=== PATIENT | female | born 1985 | race Caucasian/White ===

== ENCOUNTER 2020-06-30 19:26 | Emergency (ER) | payer OTHER, SELFPAY ==
--- NOTE | ~2020-06-30 | US_ITS ---
EXAMINATION: ULTRASOUND OB LIMITED. CLINICAL INFORMATION: Status post medical [address] COMPARISON: None TECHNIQUE: Transabdominal and transvaginal ultrasound the pelvis is performed. FINDINGS: The uterus is retroverted and retroflexed measuring 10.1 cm in length, 4.4 cm in AP and 5.4 cm in transverse dimension. Endometrium is heterogeneous and thickened measuring 3.4 cm with increased vascularity. There is small echogenic material within the endometrial canal, likely retained products of conception. The right ovary measures 2.7 x 1.6 x 2.0 cm and volume 4.5 mL. It appears unremarkable. The left ovary measures 2.1 x 1.6 x 1.5 cm and volume 2.6 mL. There is a small corpus luteal cyst measuring 1.3 x 0.8 x 1.3 cm. The small amount of free fluid in the cul-de-sac. US/US OB transvaginal IMPRESSION: Dizziness retroverted uterus with thickened endometrium and increased vascularity. There is small amount of retained products of conception within the endometrial canal. There is small free fluid in the cul-de-sac. There is small corpus luteal cyst visualized in the left ovary .
--- NOTE | ~2020-06-30 | CT_ITS ---
EXAMINATION: CT ABDOMEN AND PELVIS WITH CONTRAST CLINICAL INFORMATION: Diffuse abdominal pain COMPARISON: None TECHNIQUE: Multidetector volumetric images were obtained from the superior aspect of the liver through the pubic symphysis following administration 85 mL of Omnipaque 350 intravenous contrast. Sagittal and coronal reformatted images were obtained on the technologist's workstation. Oral contrast: No This CT examination was performed using dose optimization techniques as appropriate, variously including the following: *Automated exposure control *Adjustment of mA and/or kV according to patient size (this includes techniques or standardized protocols for targeted exams where dose is matched to indication/reason for exam; i.e. extremities or head) *Use of iterative reconstruction technique DLP: 331 mGy-cm FINDINGS: LUNG BASES: There is minimal atelectatic changes in left lung base. The heart size is normal. LIVER, GALLBLADDER, AND BILIARY TREE: The liver is normal in size, shape, and attenuation. No focal hepatic lesion or biliary ductal dilatation is present. The gallbladder is unremarkable with no evidence of radiopaque gallstones, gallbladder wall thickening, or obvious pericholecystic inflammatory changes. PANCREAS: Unremarkable. SPLEEN: Unremarkable. ADRENAL GLANDS: Unremarkable. KIDNEYS AND URETERS: The kidneys are normal in size, shape, and attenuation. No hydronephrosis, hydroureter, or calculi seen. No perinephric stranding. BLADDER: Unremarkable. GASTROINTESTINAL TRACT: There is moderate liquid and minimal stool seen throughout the colon without any significant distention. There is fluid filled small bowel loops. There is nonspecific mild mural prominence seen in the proximal small bowel loops on several axial images 33/3, image 41/3, image 39/3. No free air or free fluid seen. ABDOMINAL WALL: No significant hernia is appreciated. LYMPH NODES: Normal. VASCULAR: There are prominent varicose veins in the abdomen. PELVIC VISCERA: There is no free fluid seen. The uterus is retroverted. A slightly enlarged. OSSEOUS STRUCTURES: Unremarkable. CT/CT abdomen pelvis w con IMPRESSION: Filled colon and small bowel loops. There are circumferential mural thickening involving some of the small bowel loops segments suspicious for enteritis. No abnormal retroperitoneal or mesenteric lymph nodes seen. Retroverted bulky uterus
--- NOTE | ~2020-06-30 | US_ITS ---
EXAMINATION: ULTRASOUND OB LIMITED. CLINICAL INFORMATION: Status post medical [address] COMPARISON: None TECHNIQUE: Transabdominal and transvaginal ultrasound the pelvis is performed. FINDINGS: The uterus is retroverted and retroflexed measuring 10.1 cm in length, 4.4 cm in AP and 5.4 cm in transverse dimension. Endometrium is heterogeneous and thickened measuring 3.4 cm with increased vascularity. There is small echogenic material within the endometrial canal, likely retained products of conception. The right ovary measures 2.7 x 1.6 x 2.0 cm and volume 4.5 mL. It appears unremarkable. The left ovary measures 2.1 x 1.6 x 1.5 cm and volume 2.6 mL. There is a small corpus luteal cyst measuring 1.3 x 0.8 x 1.3 cm. The small amount of free fluid in the cul-de-sac. US/US OB limited IMPRESSION: Dizziness retroverted uterus with thickened endometrium and increased vascularity. There is small amount of retained products of conception within the endometrial canal. There is small free fluid in the cul-de-sac. There is small corpus luteal cyst visualized in the left ovary .
[2020-06-30 19:34] VITALS: BP 101/60; BP 60/22; PULSE 63; RESP 20; TEMP 36.6; O2SAT 97; O2SAT 98; BMI 23.2
--- NOTE | 2020-06-30 19:46 | ECG_ITS ---
Test Reason : DIZZINESS Blood Pressure : / mmHG Vent. Rate : 056 BPM Atrial Rate : 056 BPM P-R Int : 140 ms QRS Dur : 084 ms QT Int : 448 ms P-R-T Axes : 046 066 040 degrees QTc Int : 432 ms Sinus bradycardia Otherwise normal ECG No previous ECGs available Referred By: Damaris Faust Electronically Signed By:Han Anguiano
--- NOTE | 2020-06-30 19:51 | ED_ITS ---
HPI - General Adult General Chief complaint: General Medical Stated complaint: dyzness Time Seen by Provider: 06/30/20 19:38 Source: patient and EMS Mode of arrival: EMS Limitations: no limitations History of Present Illness HPI narrative: Patient comes emergency room complaining of dizziness and abdominal pain. Patient states that 3 weeks ago, she had a medical induced , has been having moderate vaginal bleeding daily. Patient states earlier today, she had a sensation that she was going to pass out, lightheaded, blacking out but she did not lose consciousness. Patient states that shortly after she started having intense bilateral lower quadrant abdominal pain. Patient denies foul vaginal discharge, states the bleeding amount is no more than a regular menstrual period. Per EMS, on their arrival, the patient's blood pressure was 60 systolic. On arrival to the emergency room, it was 100 systolic without any treatment. Patient is a , has an 11-year-old daughter, the last was an elective termination, patient has had 4 miscarriages. Related Data Previous Rx's Medication Instructions Recorded ibuprofen 600 mg PO TID PRN #14 tab 06/30/20 Allergies Allergy/AdvReac Type Severity Reaction Status Date / Time fexofenadine [From Nathalia] Allergy Dry Mucus Verified 06/30/20 19:39 Membranes promethazine [From Phenergan] Allergy Shakiness Verified 06/30/20 19:39 shellfish derived Allergy Anaphylaxis Verified 06/30/20 19:39 Review of Systems Review of Systems: Constitutional : No Weight loss, No Fever, No Chills, No Night Sweats, No Fatigue, No Malaise ENT/Mouth : No Hearing loss, No Ear Pain, No Nasal Congestion, No Sinus Pain, No Hoarseness, No sore throat, No Rhinorrhea, No Swallowing Difficulty Eyes: No Eye Pain, No Swelling, No Redness, No Foreign Body, No Discharge, No Vision Changes Cardiovascular : No Chest Pain, No SOB, No Dyspnea on Exertion, No Orthopnea, No Edema, No Palpitations Respiratory : No Cough, No Sputum, No Wheezing, No Smoke Exposure, No Dyspnea Gastrointestinal : No Nausea, No Vomiting, No Diarrhea, No Constipation, complaining of sudden onset of sharp abdominal pain, now slowly subsiding, No Hematochezia, No Melena Genitourinary : Has had vaginal bleeding for 3 weeks status post medical , No Dysuria, No Urinary Frequency, No Hematuria, No Urinary Incontinence, No Urgency, No Flank Pain, No Urinary Flow Changes, No Hesitancy Musculoskeletal : No joint pain, No Myalgias, No Joint Swelling Skin : No Skin Lesions, No rash Neuro : No Weakness, No Numbness, No Paresthesias, No Loss of Consciousness, prior to arrival had an episode of lightheadedness Psych : No Anxiety/Panic, No Depression, No SI/HI/AH/VH, No Social Issues, Heme/Lymph: No Bruising, No Bleeding,No Lymphadenopathy Endocrine : No Polyuria, No Polydipsia, No Temperature Intolerance FOR[facility]LY [facility], [facility] Past Medical History Medical History Miscarriage Muscular dystrophy Vaginal delivery Surgical History Hx of appendectomy Social History Social History Advance Directives: No Physical Exam Vital Signs: Vital Signs: Last Vital Signs Temp 97.8 F 06/30/20 19:34 Pulse 63 06/30/20 19:34 Resp 20 06/30/20 20:58 BP 101/60 06/30/20 19:34 Pulse Ox 98 06/30/20 19:34 Body Mass Index 23.2 Appearance: Alert. Oriented X3. No acute distress. Anxious Eyes: Pupils equal, round and reactive to light. ENT: Pharynx normal. Neck: Normal inspection. Neck supple. No lymph nodes noted. No crepitus CVS: Normal heart rate and rhythm. Pulses normal. Normal S1 and S2 Respiratory: No respiratory distress. Breath sounds normal. No Wheezing. No rales Abdomen: Soft , moderate tenderness to palpation over the bilateral lower quadrants. No rigidity. No distention. : minimal brown, dark red blood around cervix, no active bleeding from cervical oz, no cervical motion tenderness, no adnexal pain Skin: Skin warm and dry. Normal skin color. Normal skin turgor. Extremities: No lower extremity edema. No lower extremity edema. No Lacerations. No Rash Neuro: Oriented X 3. No motor deficit. No sensory deficit. Moving all extermities. No slurred speech. Course Course Course Narrative: Patient states that she has no abdominal pain, no cramping, states she feels completely back to normal. I discussed the ultrasound and CT with the patient and the hCG level. Patient has an OBGYN, instructed to have close follow-up with her OBGYN because her HCG still elevated, needs to come down to 0. Of retained product of conception within the endometrial canal, which patient may need a D&C. Patient's episode of dizziness earlier today likely was vasovagal. Patient's orthostatics were negative, however by the time that the orthostatics were checked, patient had already received fluids. Prior to discharge, patient feeling well, at baseline Medical Decision Making Lab Data Result diagrams: 06/30/20 19:51 06/30/20 19:51 Labs: Lab Results 06/30/20 06/30/20 06/30/20 Range/Units 19:51 19:51 19:51 WBC 10.1 (4.8-10.8) X10*3/uL RBC 4.00 L (4.20-5.50) X10*6/uL Hgb 12.3 (12.0-16.0) g/dl Hct 37.8 (37-47) % MCV 94.5 (80-98) fL MCH 30.8 (27.0-33.0) pg MCHC 32.5 (31.0-35.0) g/dl RDW 12.5 (11.0-16.0) % Plt Count 455 H (160-400) X10*3/uL MPV 10.4 (9.4-12.3) fL Immature Gran % (Auto) 0.2 (0.0-0.4) % Neut % (Auto) 54.4 (45-73) % Lymph % (Auto) 33.2 (20-40) % [place] % (Auto) 9.8 (2-11) % Eos % (Auto) 2.2 (0-4) % Baso % (Auto) 0.2 (0-2) % Lymph # (Auto) 3.4 (1.2-4.9) X10*3/uL [place] # (Auto) 1.0 (0.1-1.2) X10*3/uL Eos # (Auto) 0.2 (0.0-0.4) X10*3/uL Baso # (Auto) 0.0 (0.0-0.2) X10*3/uL Abs Immat Gran (auto) 0.02 (0.00-0.03) X10*3/uL Absolute Neuts (auto) 5.5 (2.0-8.3) X10*3/uL Absolute Nucleated RBC 0.000 (0.0-0.012) X10*3/uL Nucleated RBC % (auto) 0.0 (0.0-0.2) /100WBC Sodium 138 (135-145) mmol/L Potassium 4.1 (3.3-5.1) mmol/L Chloride 105 (96-108) mmol/L Carbon Dioxide 24 (22-29) mmol/L Anion Gap 13 (12-20) BUN 10 (9-16) mg/dL Creatinine 0.62 (0.5-1.4) mg/dL Estim Creat Clear Calc 95.3 Estimated GFR > 60 Random Glucose 78 (60-115) mg/dL Calcium 9.2 (8.4-10.2) mg/dL Total Bilirubin 0.4 (0.0-1.0) mg/dL Direct Bilirubin < 0.2 (0.0-0.5) mg/dL AST 18 (5-31) U/L ALT 15 (0-31) U/L Alkaline Phosphatase 82 (39-117) U/L Troponin I High Sens < 3.5 (<3.5-17.0) ng/L Total Protein 8.0 (6.5-8.0) g/dL Albumin 4.5 (3.5-5.0) g/dL Beta HCG, Quant 88952 mIU/mL Blood Type 06/30/20 Range/Units 19:51 WBC (4.8-10.8) X10*3/uL RBC (4.20-5.50) X10*6/uL Hgb (12.0-16.0) g/dl Hct (37-47) % MCV (80-98) fL MCH (27.0-33.0) pg MCHC (31.0-35.0) g/dl RDW (11.0-16.0) % Plt Count (160-400) X10*3/uL MPV (9.4-12.3) fL Immature Gran % (Auto) (0.0-0.4) % Neut % (Auto) (45-73) % Lymph % (Auto) (20-40) % [place] % (Auto) (2-11) % Eos % (Auto) (0-4) % Baso % (Auto) (0-2) % Lymph # (Auto) (1.2-4.9) X10*3/uL [place] # (Auto) (0.1-1.2) X10*3/uL Eos # (Auto) (0.0-0.4) X10*3/uL Baso # (Auto) (0.0-0.2) X10*3/uL Abs Immat Gran (auto) (0.00-0.03) X10*3/uL Absolute Neuts (auto) (2.0-8.3) X10*3/uL Absolute Nucleated RBC (0.0-0.012) X10*3/uL Nucleated RBC % (auto) (0.0-0.2) /100WBC Sodium (135-145) mmol/L Potassium (3.3-5.1) mmol/L Chloride (96-108) mmol/L Carbon Dioxide (22-29) mmol/L Anion Gap (12-20) BUN (9-16) mg/dL Creatinine (0.5-1.4) mg/dL Estim Creat Clear Calc Estimated GFR Random Glucose (60-115) mg/dL Calcium (8.4-10.2) mg/dL Total Bilirubin (0.0-1.0) mg/dL Direct Bilirubin (0.0-0.5) mg/dL AST (5-31) U/L ALT (0-31) U/L Alkaline Phosphatase (39-117) U/L Troponin I High Sens (<3.5-17.0) ng/L Total Protein (6.5-8.0) g/dL Albumin (3.5-5.0) g/dL Beta HCG, Quant mIU/mL Blood Type O Positive Imaging Data Abdominal CT: Radiologist's impression: INDINGS: LUNG BASES: There is minimal atelectatic changes in left lung base. The heart size is normal. LIVER, GALLBLADDER, AND BILIARY TREE: The liver is normal in size, shape, and attenuation. No focal hepatic lesion or biliary ductal dilatation is present. The gallbladder is unremarkable with no evidence of radiopaque gallstones, gallbladder wall thickening, or obvious pericholecystic inflammatory changes. PANCREAS: Unremarkable. SPLEEN: Unremarkable. ADRENAL GLANDS: Unremarkable. KIDNEYS AND URETERS: The kidneys are normal in size, shape, and attenuation. No hydronephrosis, hydroureter, or calculi seen. No perinephric stranding. BLADDER: Unremarkable. GASTROINTESTINAL TRACT: There is moderate liquid and minimal stool seen throughout the colon without any significant distention. There is fluid filled small bowel loops. There is nonspecific mild mural prominence seen in the proximal small bowel loops on several axial images 33/3, image 41/3, image 39/3. No free air or free fluid seen. ABDOMINAL WALL: No significant hernia is appreciated. LYMPH NODES: Normal. VASCULAR: There are prominent varicose veins in the abdomen. PELVIC VISCERA: There is no free fluid seen. The uterus is retroverted. A slightly enlarged. OSSEOUS STRUCTURES: Unremarkable. CT/CT abdomen pelvis w con IMPRESSION: Filled colon and small bowel loops. There are circumferential mural thickening involving some of the small bowel loops segments suspicious for enteritis. No abnormal retroperitoneal or mesenteric lymph nodes seen. Retroverted bulky uterus Pelvic/transvaginal ultrasound: Radiologist's impression: FINDINGS: The uterus is retroverted and retroflexed measuring 10.1 cm in length, 4.4 cm in AP and 5.4 cm in transverse dimension. Endometrium is heterogeneous and thickened measuring 3.4 cm with increased vascularity. There is small echogenic material within the endometrial canal, likely retained products of conception. The right ovary measures 2.7 x 1.6 x 2.0 cm and volume 4.5 mL. It appears unremarkable. The left ovary measures 2.1 x 1.6 x 1.5 cm and volume 2.6 mL. There is a small corpus luteal cyst measuring 1.3 x 0.8 x 1.3 cm. The small amount of free fluid in the cul-de-sac. US/US OB limited IMPRESSION: Dizziness retroverted uterus with thickened endometrium and increased vascularity. There is small amount of retained products of conception within the endometrial canal. There is small free fluid in the cul-de-sac. There is small corpus luteal cyst visualized in the left ovary . ECG Data Attestation: I personally reviewed and interpreted this ECG as follows: (Sinus bradycardia, heart rate 56, no ST segment depression or elevation, no T-wave inversion, QTC 432) Discharge Plan Discharge Clinical Impression: Vasovagal near syncope, Abdominal pain Patient Disposition: Home, Self-Care Instructions: Syncope (ED), Abdominal Pain (ED) Additional Instructions: Please call your OBGYN to schedule an appointment within the next week. Your hCG blood level needs to be repeated, and it is likely that you will need another ultrasound. Please follow-up with your primary care physician tomorrow. If you have any worsening or new symptoms, please return to the emergency room or call 911 Prescriptions: New ibuprofen 600 mg tablet 600 mg PO TID PRN (Reason: fever or pain) Qty: 14 RF: 0 Interventions: ED Discharge Assessment Last Done: 06/30/20 23:41 Discharge Date/Time: 06/30/20 23:41
[2020-06-30] MEDS: 0.9 % Sodium Chloride 1,000 ML 999 ML IVCONT (19:54)
[2020-06-30 20:10] LABS: MANUAL DIFF FLAG NO
[2020-06-30 20:12] LABS: Basophils Percent Auto 0.2 % (0-2); Eosinophils Absolute Auto 0.2 X10*3/uL (0.0-0.4); Eosinophils Percent Auto 2.2 % (0-4); Hematocrit 37.8 % (37-47); Hemoglobin 12.3 g/dl (12.0-16.0); Imm Gran Abs Auto 0.02 X10*3/uL (0.00-0.03); Imm Gran Pct Auto 0.2 % (0.0-0.4); Lymphocytes Absolute Auto 3.4 X10*3/uL (1.2-4.9); Lymphocytes Percent Auto 33.2 % (20-40); Mean Corpuscular HGB Conc 32.5 g/dl (31.0-35.0); Mean Corpuscular Hemoglobin 30.8 pg (27.0-33.0); Mean Corpuscular Volume 94.5 fL (80-98); Mean Platelet Volume 10.4 fL (9.4-12.3); Monocytes Percent Auto 9.8 % (2-11); Neutrophils Absolute Auto 5.5 X10*3/uL (2.0-8.3); Neutrophils Percent Auto 54.4 % (45-73); Platelet Count 455 X10*3/uL (160-400); Red Cell Distribution Width 12.5 % (11.0-16.0); White Blood Count 10.1 X10*3/uL (4.8-10.8)
--- NOTE | 2020-06-30 20:21 | PC.NURSE ---
Patient refusing ordered morphine and zofran at this time. States I want to wait until my results are back first . Pt grimacing in pain, reporting whole abdomen pain 10 out of 10 at this time that started 45 minutes prior to arrival. Will continue to monitor.
[2020-06-30 20:34] LABS: Alanine Aminotransferase 15 U/L (0-31); Albumin Level 4.5 g/dL (3.5-5.0); Alkaline Phosphatase 82 U/L (39-117); Anion Gap 13 (12-20); Aspartate Amino Transferase 18 U/L (5-31); Bilirubin Direct < 0.2 mg/dL (0.0-0.5); Bilirubin Total 0.4 mg/dL (0.0-1.0); Blood Urea Nitrogen 10 mg/dL (9-16); Calcium 9.2 mg/dL (8.4-10.2); Carbon Dioxide 24 mmol/L (22-29); Chloride 105 mmol/L (96-108); Creatinine Clr Calc Pharmacy 95.3; Estimated Glomerular Filt Rate > 60; Glucose Random 78 mg/dL (60-115); Potassium 4.1 mmol/L (3.3-5.1); Sodium 138 mmol/L (135-145)
[2020-06-30 20:38] LABS: Troponin-I High Sensitivity < 3.5 ng/L (<3.5-17.0)
[2020-06-30 20:39] LABS: HCG Quantitative 12673 mIU/mL
[2020-06-30 20:58] VITALS: RESP 20
[2020-06-30] MEDS: Morphine Sulfate 4 MG/ML CARTRIDGE IVPUSH (20:58)
[2020-06-30] MEDS: ondansetron HCL 4 MG/2 ML VIAL IVPUSH (20:58)
== END 2020-06-30 23:41 | disposition home or self-care (01) ==
PROVIDERS: Emergency Provider Emergency Medicine
DX: R55 Syncope and collapse (principal); R10.30 Lower abdominal pain, unspecified; N83.12 Corpus luteum cyst of left ovary; G71.00 Muscular dystrophy, unspecified
CPT/HCPCS: 36415; 74177; 76815; 76817; 80048; 80076; 84484; 84702; 85025; 86900; 86901; 93005; 96361; 96374; 96375; 99283; 99284; J2270; J2405; Q9967

== ENCOUNTER 2020-10-19 18:23 | Emergency (ER) | payer OTHER, SELFPAY ==
--- NOTE | ~2020-10-19 | US_ITS ---
EXAMINATION: PELVIC ULTRASOUND CLINICAL INFORMATION: Heavy bleeding for 28 days COMPARISON: CT abdomen pelvis 06/30/2020, pelvic ultrasound 06/30/2020 TECHNIQUE: Both transabdominal endovaginal scanning was performed FINDINGS: A retroflexed uterus measuring 7.3 x 4.1 x 5.0 cm is present. The endometrium appears unremarkable at 2 mm in thickness. No endometrial masses or fluid is seen. Both ovaries appear normal with the right measuring 2.7 x 1.4 x 1.5 cm for a volume of 3.0 mL and the left measuring 2.9 x 1.0 x 1.2 cm for a volume of 2.0 mL. No free fluid is present in the cul-de-sac US/US pelvic and transvaginal IMPRESSION: Negative exam
[2020-10-19 18:34] VITALS: BP 112/58; PULSE 108; RESP 20; TEMP 36.8; O2SAT 100; BMI 20.2
[2020-10-19 18:45] LABS: MANUAL DIFF FLAG NO
[2020-10-19 18:49] LABS: Basophils Percent Auto 0.2 % (0-2); Eosinophils Absolute Auto 0.1 X10*3/uL (0.0-0.4); Eosinophils Percent Auto 0.7 % (0-4); Hematocrit 37.8 % (37-47); Hemoglobin 12.9 g/dl (12.0-16.0); Imm Gran Abs Auto 0.03 X10*3/uL (0.00-0.03); Imm Gran Pct Auto 0.3 % (0.0-0.4); Lymphocytes Absolute Auto 1.5 X10*3/uL (1.2-4.9); Mean Corpuscular HGB Conc 34.1 g/dl (31.0-35.0); Mean Corpuscular Hemoglobin 32.3 pg (27.0-33.0); Mean Corpuscular Volume 94.5 fL (80-98); Mean Platelet Volume 9.8 fL (9.4-12.3); Monocytes Absolute Auto 0.6 X10*3/uL (0.1-1.2); Monocytes Percent Auto 6.6 % (2-11); Neutrophils Absolute Auto 6.6 X10*3/uL (2.0-8.3); Neutrophils Percent Auto 75.2 % (45-73); Platelet Count 332 X10*3/uL (160-400); Red Cell Distribution Width 12.7 % (11.0-16.0); White Blood Count 8.8 X10*3/uL (4.8-10.8)
[2020-10-19 19:12] LABS: Alanine Aminotransferase 12 U/L (0-31); Albumin Level 4.3 g/dL (3.5-5.0); Alkaline Phosphatase 69 U/L (39-117); Anion Gap 12 (12-20); Aspartate Amino Transferase 18 U/L (5-31); Bilirubin Total 0.4 mg/dL (0.0-1.0); Blood Urea Nitrogen 10 mg/dL (9-16); Calcium 9.5 mg/dL (8.4-10.2); Carbon Dioxide 22 mmol/L (22-29); Chloride 109 mmol/L (96-108); Creatinine Clr Calc Pharmacy 75.7; Estimated Glomerular Filt Rate > 60; Glucose Random 134 mg/dL (60-115); Sodium 139 mmol/L (135-145); Total Protein 7.6 g/dL (6.5-8.0)
--- NOTE | 2020-10-19 21:24 | ED_ITS ---
HPI - Female Genitourinary General Chief complaint: Vaginal Bleeding Stated complaint: Menstrual cycle for 25 days Time Seen by Provider: 10/19/20 20:05 Source: patient Mode of arrival: ambulatory Limitations: no limitations History of Present Illness HPI Narrative: Patient comes emergency room complaining of heavy vaginal bleeding. Patient states that period since September 24. This is the 1st time that she has had such a long menstrual period. Patient was seen by her OBGYN 5 days ago, she was started on Provera, patient is currently taking 10 mg. Patient states the Provera made the bleeding worse. Patient states that she has to change tampon every 20 minutes, this has been going on for approximately 4 days. Patient states that she feels dizzy, fatigue Related Data Previous Rx's Medication Instructions Recorded ibuprofen 600 mg PO TID PRN #14 tab 06/30/20 medroxyprogesterone [Provera] 10 mg PO DAILY #2 tab 10/19/20 Allergies Allergy/AdvReac Type Severity Reaction Status Date / Time fexofenadine [From Nathalia] Allergy Dry Mucus Verified 06/30/20 19:39 Membranes promethazine [From Phenergan] Allergy Shakiness Verified 06/30/20 19:39 shellfish derived Allergy Anaphylaxis Verified 06/30/20 19:39 Review of Systems Review of Systems: Constitutional : No Weight loss, No Fever, No Chills, No Night Sweats, complaining of fatigue ENT/Mouth : No Hearing loss, No Ear Pain, No Nasal Congestion, No Sinus Pain, No Hoarseness, No sore throat, No Rhinorrhea, No Swallowing Difficulty Eyes: No Eye Pain, No Swelling, No Redness, No Foreign Body, No Discharge, No Vision Changes Cardiovascular : No Chest Pain, No SOB, No Dyspnea on Exertion, No Orthopnea, No Edema, No Palpitations Respiratory : No Cough, No Sputum, No Wheezing, No Smoke Exposure, No Dyspnea Gastrointestinal : No Nausea, No Vomiting, No Diarrhea, No Constipation, No abdominal Pain, No Hematochezia, No Melena Genitourinary : Complaining of heavy and continues menstrual period since September 24, No Dysuria, No Urinary Frequency, No Hematuria, No Urinary Incontinence, No Urgency, No Flank Pain, No Urinary Flow Changes, No Hesitancy Musculoskeletal : No joint pain, No Myalgias, No Joint Swelling Skin : No Skin Lesions, No rash Neuro : No Weakness, No Numbness, No Paresthesias, No Loss of Consciousness, No Dizziness, No Headache Psych : No Anxiety/Panic, No Depression, No SI/HI/AH/VH, No Social Issues, Heme/Lymph: No Bruising, No Bleeding,No Lymphadenopathy Endocrine : No Polyuria, No Polydipsia, No Temperature Intolerance PMF Past Medical History Medical History Miscarriage Muscular dystrophy Vaginal delivery Surgical History Hx of appendectomy Social History Social History Patient Tobacco Use Status: Never used Tobacco Use of substances other than those prescribed or required for medical reasons: No Advance Directives: No Advance Directives Information Provided: No Patient : No Physical Exam Vital Signs: Vital Signs: Last Vital Signs Temp 98.7 F 10/19/20 21:39 Pulse 85 10/19/20 21:41 Resp 16 10/19/20 21:39 BP 102/53 L 10/19/20 21:41 Pulse Ox 100 10/19/20 21:39 Body Mass Index 20.2 Appearance: Alert. Oriented X3. No acute distress. Eyes: Pupils equal, round and reactive to light. ENT: Pharynx normal. Neck: Normal inspection. Neck supple. No lymph nodes noted. No crepitus CVS: Normal heart rate and rhythm. Pulses normal. Normal S1 and S2 Respiratory: No respiratory distress. Breath sounds normal. No Wheezing. No rales Abdomen: Soft and nontender. No rigidity. No distention. : [id number] blood in the vaginal canal Skin: Skin warm and dry. Normal skin color. Normal skin turgor. Extremities: No lower extremity edema. No lower extremity edema. No Lacerations. No Rash Neuro: Oriented X 3. No motor deficit. No sensory deficit. Moving all extermities. No slurred speech. Course Course Course Narrative: I discussed the ultrasound with Dr. Bruno, patient instructed to take 20 mg of Provera for the next 2 days, then return to 10 mg. MDM - Female Genitourinary Lab Data Result diagrams: 10/19/20 18:41 10/19/20 18:41 Labs: Lab Results 10/19/20 10/19/20 Range/Units 18:41 18:41 WBC 8.8 (4.8-10.8) X10*3/uL RBC 4.00 L (4.20-5.50) X10*6/uL Hgb 12.9 (12.0-16.0) g/dl Hct 37.8 (37-47) % MCV 94.5 (80-98) fL MCH 32.3 (27.0-33.0) pg MCHC 34.1 (31.0-35.0) g/dl RDW 12.7 (11.0-16.0) % Plt Count 332 D (160-400) X10*3/uL MPV 9.8 (9.4-12.3) fL Immature Gran % (Auto) 0.3 (0.0-0.4) % Neut % (Auto) 75.2 H (45-73) % Lymph % (Auto) 17.0 L (20-40) % [place] % (Auto) 6.6 (2-11) % Eos % (Auto) 0.7 (0-4) % Baso % (Auto) 0.2 (0-2) % Lymph # (Auto) 1.5 (1.2-4.9) X10*3/uL [place] # (Auto) 0.6 (0.1-1.2) X10*3/uL Eos # (Auto) 0.1 (0.0-0.4) X10*3/uL Baso # (Auto) 0.0 (0.0-0.2) X10*3/uL Abs Immat Gran (auto) 0.03 (0.00-0.03) X10*3/uL Absolute Neuts (auto) 6.6 (2.0-8.3) X10*3/uL Absolute Nucleated RBC 0.000 (0.0-0.012) X10*3/uL Nucleated RBC % (auto) 0.0 (0.0-0.2) /100WBC Sodium 139 (135-145) mmol/L Potassium 4.0 (3.3-5.1) mmol/L Chloride 109 H (96-108) mmol/L Carbon Dioxide 22 (22-29) mmol/L Anion Gap 12 (12-20) BUN 10 (9-16) mg/dL Creatinine 0.72 (0.5-1.4) mg/dL Estim Creat Clear Calc 75.7 Estimated GFR > 60 Random Glucose 134 H D (60-115) mg/dL Calcium 9.5 (8.4-10.2) mg/dL Total Bilirubin 0.4 (0.0-1.0) mg/dL AST 18 (5-31) U/L ALT 12 (0-31) U/L Alkaline Phosphatase 69 (39-117) U/L Total Protein 7.6 (6.5-8.0) g/dL Albumin 4.3 (3.5-5.0) g/dL Beta HCG, Quant < 2 mIU/mL Imaging Data Ultrasound: Radiologist's impression: FINDINGS: A retroflexed uterus measuring 7.3 x 4.1 x 5.0 cm is present. The endometrium appears unremarkable at 2 mm in thickness. No endometrial masses or fluid is seen. Both ovaries appear normal with the right measuring 2.7 x 1.4 x 1.5 cm for a volume of 3.0 mL and the left measuring 2.9 x 1.0 x 1.2 cm for a volume of 2.0 mL. No free fluid is present in the cul-de-sac US/US pelvic and transvaginal IMPRESSION: Negative exam Discharge Plan Discharge Clinical Impression: Dysfunctional uterine bleeding Patient Disposition: Home, Self-Care Instructions: Menorrhagia (ED) Additional Instructions: Take 20 mg of Provera for 2 days, then return to your regular dose of 10 mg . Please follow-up with your primary care physician tomorrow. If you have any worsening or new symptoms, please return to the emergency room or call 911 Prescriptions: New medroxyprogesterone [Provera] 10 mg tablet 10 mg PO DAILY Qty: 2 RF: 0 No Action ibuprofen 600 mg tablet 600 mg PO TID PRN (Reason: fever or pain) Qty: 14 RF: 0
[2020-10-19 21:39] VITALS: BP 112/57; PULSE 71; RESP 16; TEMP 37.1; O2SAT 100
[2020-10-19 21:40] VITALS: BP 106/60; BP 112/57; PULSE 71; PULSE 76
[2020-10-19 21:41] VITALS: BP 102/53; PULSE 85
--- NOTE | 2020-10-19 21:47 | PC.NURSE ---
THIS RN AT BEDSIDE DISPUTE SPECIALIST FOR PELVIC EXAM. MODERATE VAGINAL BLEEDING NOTED BY MD. NO LARGE CLOTS. AWAITING FURTHER INTERVENTIONS INCLUDING US. AWARE OF PLAN OF CARE. PT REMAINS A&Ox4, SKIN PWD RESPIRATIONS EVEN UNLABORED. AMBULATING WITH STEADY GAIT.
--- NOTE | 2020-10-19 22:37 | PC.NURSE ---
PT RETURNED FROM US, NO CHANGE IN PHYSICAL ASSESSMENT, AWAITING RESULTS, AWARE OF PLAN OF CARE.
[2020-10-19 23:08] LABS: HCG Quantitative < 2 mIU/mL
[2020-10-19] MEDS: Acetaminophen 325 MG TABLET 650 MG PO (23:53)
== END 2020-10-20 00:10 | disposition home or self-care (01) ==
PROVIDERS: Emergency Provider Emergency Medicine
DX: N93.8 Other specified abnormal uterine and vaginal bleeding (principal); Z79.899 Other long term (current) drug therapy
CPT/HCPCS: 36415; 76830; 76856; 80053; 84702; 85025; 99284

== ENCOUNTER 2020-12-13 19:50 | Emergency (ER) | payer OTHER, SELFPAY ==
--- NOTE | ~2020-12-13 | XR_ITS ---
EXAMINATION: XR KNEE, LEFT CLINICAL INFORMATION: Left knee pain. Unable to straighten. Injury. COMPARISON: None TECHNIQUE: Four views of the left knee. FINDINGS: The tricompartment joint space is maintained normal. No visible acute fracture, dislocation or subluxation seen. No abnormal joint effusion. The soft tissues are normal. XR/XR knee LT 4V IMPRESSION: Unremarkable left knee exam.
[2020-12-13 19:57] VITALS: BP 157/82; PULSE 87; O2SAT 100
[2020-12-13 20:00] VITALS: BP 101/45; PULSE 81; RESP 17; TEMP 36.8; O2SAT 99; BMI 21.9
--- NOTE | 2020-12-13 20:44 | PC.NURSE ---
patient a&ox3, vss, xrays ordered/performed, awaiting ed provider, will continue to monitor
--- NOTE | 2020-12-13 21:27 | ED_ITS ---
HPI - Extremity Injury (Lower) General Chief Complaint: Extremity Injury, Lower Stated Complaint: fall knee pain Time Seen by Provider: 12/13/20 21:13 Source: patient and EMS Mode of arrival: EMS Limitations: no limitations History of Present Illness HPI Narrative: 34-year-old female came in for evaluation of left knee injury. Patient was on the stair and about to fall tried to turn her body and twisted her left knee felt pain right after, patient never fell down to the floor. No head injuries, no back pain, no neck pain. No other injuries. Related Data Previous Rx's Medication Instructions Recorded ibuprofen 600 mg tablet 600 mg PO TID PRN #14 tab 06/30/20 medroxyprogesterone 10 mg tablet 10 mg PO DAILY #2 tab 10/19/20 (Provera) ibuprofen 600 mg tablet 600 mg PO Q8H PRN #14 tab 12/13/20 Allergies Allergy/AdvReac Type Severity Reaction Status Date / Time fexofenadine [From Nathalia] Allergy Dry Mucus Verified 06/30/20 19:39 Membranes promethazine [From Phenergan] Allergy Shakiness Verified 06/30/20 19:39 shellfish derived Allergy Anaphylaxis Verified 06/30/20 19:39 Review of Systems Review of Systems: All other systems are reviewed and are negative Constitutional: Reports as per HPI and Reports no additional constitutional complaints Eyes: Reports as per HPI and Reports no additional eye complaints Reports system reviewed and no additional complaints, except as documented Cardiovascular: Reports as per HPI and Reports no additional cardiovascular complaints Respiratory: Reports as per HPI and Reports no additional respiratory complaints Gastrointestinal: Reports as per HPI and Reports no additional gastrointestinal complaints Genitourinary: Reports no additional female genitourinary complaints Musculoskeletal: Reports no additional musculoskeletal complaints Skin/Breast: Reports system reviewed and no additional complaints, except as docu Psychiatric: Reports no additional psychiatric complaints Endocrine: Reports no additional endocrine complaints Hematologic/Lymphatic: Reports no additional hematologic/lymphatic complaints Allergic/Immunologic: Reports no additional allergic/immunologic complaints Reports system reviewed and no additional complaints, except as documented and Reports Abnormal speech present [facility] Past Medical History Medical History Miscarriage Muscular dystrophy Vaginal delivery Surgical History Hx of appendectomy Social History Social History Alcohol intake: never Patient Tobacco Use Status: Never used Tobacco Use of substances other than those prescribed or required for medical reasons: Yes Substance Use Type: Marijuana Substance Use Frequency: Occasionally Advance Directives: No Advance Directives Information Provided: No Patient : No Physical Exam Vital Signs: Vital Signs: Last Vital Signs Temp 98.3 F 12/13/20 20:00 Pulse 81 12/13/20 20:00 Resp 17 12/13/20 20:00 BP 101/45 L 12/13/20 20:00 Pulse Ox 99 12/13/20 20:00 Body Mass Index 21.9 Vital signs have been reviewed as appeared to be correct. Blood pressure normal. Heart rate normal. Respiration rate normal. Temperature normal. Oxygen saturation normal. Appearance: Alert. Oriented X3. No acute distress. Head: Normal external exam. Normocephalic. Atraumatic. No Ball signs noted. No raccoon eyes noted Eyes: PERRLA. EOMI. Conjunctiva and sclera normal. Eyelids normal. ENT: TM's Normal. Pharynx normal. Uvula midline. Moist mucous membranes. No trismus noted. No drooling noted. No muffled voice noted. Neck: Normal inspection. Neck supple. FROM. No adenopathy. Thyroid Normal. No meningeal signs. No neck mass noted. CVS: Normal heart rate and rhythm. Heart sound normal. No murmurs noted. Pulses normal throughout. Respiratory: No respiratory distress. Painless inspiration. Breath sounds normal. No wheezes/rales/rhonchi noted. Chest nontender. No accessory muscle usage noted or decreased air movement noted. Abdomen: Soft and nontender. Bowel sounds normal in all 4 quadrants. No distention noted. No organomegaly noted. No visible injury noted. Back: No CVA tenderness. Full range of motion noted. Skin: Skin warm and dry. Normal skin color. Normal skin turgor. No rashes/lesions/lacerations noted. Extremities: Left knee held and semi flexed position, with diffuse tenderness to the left knee, no step-off, no deformity. Neurovascularly intact. Neuro: Oriented X 3. Cranial nerve exam: II-XII are grossly intact No motor deficit. No sensory deficit. Reflexes normal. Course Course Course Narrative: Assessment and plan. Left knee injury, very limited exam due to pain for ligamentous injury, x-ray showed no bony fracture. Ice, NSAIDs, knee immobilizer, crutches, follow up with Dr. Gandara at [facility] Service. MDM - Extremity Injury (Lower) Imaging Data Left knee x-ray: Radiologist's impression: Unremarkable left knee exam Discharge Plan Discharge Clinical Impression: Left knee sprain Qualifiers: Encounter type: initial encounter Patient Disposition: Home, Self-Care Prescriptions: New ibuprofen 600 mg tablet 600 mg PO Q8H PRN (Reason: pain) Qty: 14 RF: 0 No Action ibuprofen 600 mg tablet 600 mg PO TID PRN (Reason: fever or pain) Qty: 14 RF: 0 medroxyprogesterone [Provera] 10 mg tablet 10 mg PO DAILY Qty: 2 RF: 0 Referrals: Hubert Gandara MD [Physician] - 2 days Stand Alone Forms: Work/School Release
[2020-12-13] MEDS: Ibuprofen 600 MG TABLET PO (21:57)
[2020-12-13] MEDS: oxyCODONE HCl Immed Release 5 MG TABLET PO (21:57)
== END 2020-12-13 22:08 | disposition home or self-care (01) ==
PROVIDERS: Emergency Provider Emergency Medicine
DX: S83.92XA Sprain of unspecified site of left knee, initial encounter (principal); M25.562 Pain in left knee; F12.90 Cannabis use, unspecified, uncomplicated; X58.XXXA Exposure to other specified factors, initial encounter; Y93.9 Activity, unspecified; Y92.9 Unspecified place or not applicable; Y99.9 Unspecified external cause status; Z79.899 Other long term (current) drug therapy
CPT/HCPCS: 73564; 99283; 99284

== ENCOUNTER 2021-05-03 09:53 | Emergency (ER) | payer OTHER, SELFPAY ==
--- NOTE | ~2021-05-03 | CT_ITS ---
EXAMINATION: CT ABDOMEN AND PELVIS WITHOUT CONTRAST CLINICAL INFORMATION: Left flank pain. History of kidney stones. COMPARISON: CT abdomen and pelvis 06/30/2020. TECHNIQUE: Multidetector volumetric imaging was performed from the superior aspect of the liver through the pubic symphysis. Sagittal and coronal reformatted images were obtained on the technologist's workstation. This CT examination was performed using dose optimization techniques as appropriate, variously including the following: *Automated exposure control *Adjustment of mA and/or kV according to patient size (this includes techniques or standardized protocols for targeted exams where dose is matched to indication/reason for exam; i.e. extremities or head) *Use of iterative reconstruction technique DLP: 307 mGy-cm FINDINGS: LUNG BASES: There is minimal plate-like atelectasis left lower lobe. LIVER, GALLBLADDER, AND BILIARY TREE: The gallbladder is unremarkable with no evidence of radiopaque gallstones, gallbladder wall thickening, or obvious pericholecystic inflammatory changes. PANCREAS: Unremarkable. SPLEEN: Unremarkable. ADRENAL GLANDS: Unremarkable. KIDNEYS AND URETERS: The kidneys are normal in size, shape, and attenuation. There are punctate hyperdense pyramids with 2 mm nonobstructive radiopaque calculi upper, mid and lower pole right kidney and mid pole left kidney. No caliectasis or hydronephrosis seen. BLADDER: Unremarkable. GASTROINTESTINAL TRACT: There is scattered stool and gas seen throughout the colon without any significant distention. The small bowel loops are nondilated. There is no free air or free fluid. ABDOMINAL WALL: No significant hernia is appreciated. LYMPH NODES: Normal. VASCULAR: Unremarkable. PELVIC VISCERA: The uterus is retroverted with an IUD well located in the endometrial canal. OSSEOUS STRUCTURES: No lytic or sclerotic process seen. CT/CT abdomen pelvis wo con IMPRESSION: Bilateral nephrolithiasis with hyperdense pyramids. No caliectasis or hydronephrosis seen. Moderate constipation. There is no obstruction. Retroverted uterus with IUD in endometrial canal. Fleischner guidelines were followed.
--- NOTE | ~2021-05-03 | US_ITS ---
EXAMINATION: US PELVIS CLINICAL INFORMATION: Severe lower abdominal pain. History of cyst. COMPARISON: None TECHNIQUE: Ultrasound of the pelvis is performed using both transabdominal and transvaginal transducers along with Doppler. Transvaginal imaging is performed due to inadequate visualization transabdominally. FINDINGS: Uterus: The uterus is anteverted, retroflexed and measures 7.9 cm in length, 4.1 cm AP and 4.4 cm in transverse dimension. There is an IUD in the endometrial canal, limiting evaluation of the endometrial thickness. The uterus is smooth in contour and has normal myometrial echogenicity. No visible fibroid. Adnexa: Both ovaries are visualized. There is normal color flow to the adnexa. There is no ovarian torsion. There is no pelvic ascites or fluid collection. Right ovary measures 3.3 x 2.0 x 1.2 cm and volume 4.2 mL. There is anechoic cyst measuring 1.2 x 1.0 x 1.5 cm. Previously, right ovary measured 2.7 x 1.4 x 1.5 cm and volume 3.0 mL. Left ovary measures 3.9 x 2.9 x 2.0 cm and volume 11.8 mL. There is a corpus luteal cyst or complex cyst measuring 2.7 x 2.0 x 2.3 cm. There is no free fluid in the cul-de-sac. US/US pelvic and transvaginal IMPRESSION: 1.5 cm simple ovarian cyst right ovary. 2.7 cm corpus luteal cyst versus complex cyst of the left ovary. The uterus is unremarkable. There is an IUD in place.
[2021-05-03 10:05] VITALS: BP 101/62; BP 137/49; PULSE 90; PULSE 94; RESP 16; TEMP 36.8; O2SAT 100; BMI 20.2
--- NOTE | 2021-05-03 10:06 | ED_ITS ---
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 elicited complaint: abdominal pain Pertinent past history: other (pain for 3 years worse last night has US from PCP scheduled 05/13 ?endometriosis) Onset (ago): year(s) (3) Pain Consistency: constant Location: pelvis Severity: moderate Quality: stabbing Radiation: none Migration to: no migration Exacerbating factors: movement Relieving factors: nothing Context: history of similar episodes Associated symptoms: nausea, vomiting and fever (reported fever of 102 last night took tylenol) Treatments prior to arrival: other (EMS gave fentanyl) Related Data Previous Rx's Medication Instructions Recorded ibuprofen 600 mg tablet 600 mg PO TID PRN #14 tab 06/30/20 medroxyprogesterone 10 mg tablet 10 mg PO DAILY #2 tab 10/19/20 (Provera) ibuprofen 600 mg tablet 600 mg PO Q8H PRN #14 tab 12/13/20 docusate sodium 100 mg capsule 100 mg PO BID PRN #30 cap 05/03/21 (Colace) ondansetron 4 mg disintegrating 4 mg PO Q8H PRN #20 tab 05/03/21 tablet sennosides 8.6 mg capsule (senna) 8.6 mg PO BEDTIME PRN #30 cap 05/03/21 Allergies Allergy/AdvReac Type Severity Reaction Status Date / Time fexofenadine [From Allergy Dry Mucus Verified 06/30/20 19:39 Nathalia] Membranes promethazine [From Allergy Shakiness Verified 06/30/20 19:39 Phenergan] shellfish derived Allergy Anaphylaxis Verified 06/30/20 19:39 Review of Systems Review of Systems Constitutional : No Weight loss, pos Fever, No Chills ENT/Mouth : No sore throat, No Rhinorrhea Eyes: No Swelling, No Redness Cardiovascular : No Chest Pain, No SOB, NoEdema Respiratory : No Cough, No Sputum, No Wheezing Gastrointestinal : Positive Nausea, Positive Vomiting, no Diarrhea, positive abdominal Pain, No Hematochezia, No Melena Genitourinary : No Dysuria, No Urinary Frequency, No Hematuria, No Urgency Musculoskeletal : No joint pain, No Myalgias, No Joint Swelling Skin : No Skin Lesions, No rash Neuro : No Weakness, No Numbness, No Dizziness, No Headache Psych : No Anxiety/Panic, No Depression Heme/Lymph: No Bruising, No Lymphadenopathy Endocrine : No Polyuria, No Polydipsia All other systems reviewed and are negative. Physical Exam Verdana 4l Vital Signs: Verdana 4d Verdana 4d Vital Signs: Verdana 4d Verdana 4Bd Last Vital Signs Verdana 4d Flanging Roll Operator New 4d Flanging Roll Operator New 4d Temp 98.3 F 05/03/21 15:19 Flanging Roll Operator New 4d Pulse 77 05/03/21 15:19 Flanging Roll Operator New 4d Resp 18 05/03/21 15:19 BP 127/49 L 05/03/21 15:19 Pulse Ox 99 05/03/21 15:19 BMI result Body Mass Index 20.2 Appearance: Alert. Oriented X3. No acute distress. Anxious Eyes: Pupils equal, round and reactive to light. ENT: Pharynx normal. Neck: Normal inspection. Neck supple. CVS: Normal heart rate and rhythm. Pulses normal. Respiratory: No respiratory distress. Breath sounds normal. Abdomen: Soft and moderate diffuse tenderness no rebound does have voluntary guarding Skin: Skin warm and dry. Normal skin color. Normal skin turgor. Extremities: No lower extremity edema. No calf ttp Neuro: Oriented X 3. No motor deficit. No sensory deficit. Course Course Course Narrative: patient is very upset that she has been waiting here for hours and just receiving pain killers - I explained we did try to treat her pain. We need a urine to diagnose a UTI she did urinate in US but the urine was never sent to the lab we apologized about it. I explained the delay in US in regards to radiology and apologized. She states we have done nothing for her. I explained that we have done quite a bit and that she has had this pain for 3 years and mikey t she finally got labs and an US which is what she was hoping for. She is still upset and did tell the tech she might walk out. UA pending at this time. Attempting to reassure the patient while in ED. at this time she now notes she has L flank pain and hx of kidney stones - at this time will obtain CT scan to r/o renal colic UA obtained, CT scan pending - signed out to Frieda NOBLE pending UA and CT scan MDM - Abdominal Pain MDM Narrative Medical decision making narrative: 35 yo female with hx of muscular dystrophy, ovarian cysts, s/p appendectomy as a child she comes in with 3 years of pain and has been seeing her PCP and OB she believes she has endometriosis and has US scheduled for 05/13 at this time her pain is much worse - will obtain labs, UA< US to evalute ovaries, IV morphine for pain. Dispo per results and findings. Lab Data Result diagrams: 05/03/21 11:36 05/03/21 11:36 Labs: Lab Results 05/03/21 05/03/21 05/03/21 Range/Units 11:36 11:36 11:37 WBC 5.5 (4.8-10.8) X10*3/uL RBC 3.85 L (4.20-5.50) X10*6/uL Hgb 12.2 (12.0-16.0) g/dl Hct 36.4 L (37.0-47.0) % MCV 94.5 (80.0-98.0) fL MCH 31.7 (27.0-33.0) pg MCHC 33.5 (31.0-35.0) g/dl RDW 12.5 (11.0-16.0) % Plt Count 228 (160-400) X10*3/uL MPV 10.3 (9.4-12.3) fL Immature Gran % (Auto) 0.2 (0.0-0.4) % Neut % (Auto) 73.5 H (45-73) % Lymph % (Auto) 10.3 L (20-40) % [place] % (Auto) 15.6 H (2-11) % Eos % (Auto) 0.2 (0-4) % Baso % (Auto) 0.2 (0-2) % Lymph # (Auto) 0.6 L (1.2-4.9) X10*3/uL [place] # (Auto) 0.9 (0.1-1.2) X10*3/uL Eos # (Auto) 0.0 (0.0-0.4) X10*3/uL Baso # (Auto) 0.0 (0.0-0.2) X10*3/uL Abs Immat Gran (auto) 0.01 (0.00-0.03) X10*3/uL Absolute Neuts (auto) 4.0 (2.0-8.3) x10*3/uL Absolute Nucleated RBC 0.000 (0.0-0.012) X10*3/uL Nucleated RBC % (auto) 0.0 (0.0-0.2) /100WBC Sodium 138 (135-145) mmol/L Potassium 3.6 (3.3-5.1) mmol/L Chloride 112 H (96-108) mmol/L Carbon Dioxide 21 L (22-29) mmol/L Anion Gap 9 L (12-20) BUN 8 L (9-16) mg/dL Creatinine 0.62 (0.5-1.4) mg/dL Estim Creat Clear Calc 87.1 Estimated GFR > 60 Random Glucose 89 (60-115) mg/dL Calcium 8.3 L D (8.4-10.2) mg/dL Magnesium 1.6 (1.6-2.6) mg/dL Total Bilirubin 0.5 (0.0-1.0) mg/dL Direct Bilirubin 0.2 (0.0-0.5) mg/dL AST 14 (5-31) U/L ALT 9 (0-31) U/L Alkaline Phosphatase 55 D (39-117) U/L Total Protein 6.6 (6.5-8.0) g/dL Albumin 3.9 (3.5-5.0) g/dL Lipase 15 (8-78) U/L Beta HCG, Quant < 2 mIU/mL Urine Color Urine Appearance Urine pH (5.0-8.0) Ur Specific Isabella (1.005-1.025) Urine Protein (NEG-TRACE) MG/DL Urine Glucose (UA) (NEG) MG/DL Urine Ketones (NEG) MG/DL Urine Blood (NEG) Urine Nitrite (NEG) Ur Leukocyte Esterase (NEG) COVID-19 (RICK) Negative (Negative) COVID-19 Clin Com See Note 05/03/21 Range/Units 16:17 WBC (4.8-10.8) X10*3/uL RBC (4.20-5.50) X10*6/uL Hgb (12.0-16.0) g/dl Hct (37.0-47.0) % MCV (80.0-98.0) fL MCH (27.0-33.0) pg MCHC (31.0-35.0) g/dl RDW (11.0-16.0) % Plt Count (160-400) X10*3/uL MPV (9.4-12.3) fL Immature Gran % (Auto) (0.0-0.4) % Neut % (Auto) (45-73) % Lymph % (Auto) (20-40) % [place] % (Auto) (2-11) % Eos % (Auto) (0-4) % Baso % (Auto) (0-2) % Lymph # (Auto) (1.2-4.9) X10*3/uL [place] # (Auto) (0.1-1.2) X10*3/uL Eos # (Auto) (0.0-0.4) X10*3/uL Baso # (Auto) (0.0-0.2) X10*3/uL Abs Immat Gran (auto) (0.00-0.03) X10*3/uL Absolute Neuts (auto) (2.0-8.3) x10*3/uL Absolute Nucleated RBC (0.0-0.012) X10*3/uL Nucleated RBC % (auto) (0.0-0.2) /100WBC Sodium (135-145) mmol/L Potassium (3.3-5.1) mmol/L Chloride (96-108) mmol/L Carbon Dioxide (22-29) mmol/L Anion Gap (12-20) BUN (9-16) mg/dL Creatinine (0.5-1.4) mg/dL Estim Creat Clear Calc Estimated GFR Random Glucose (60-115) mg/dL Calcium (8.4-10.2) mg/dL Magnesium (1.6-2.6) mg/dL Total Bilirubin (0.0-1.0) mg/dL Direct Bilirubin (0.0-0.5) mg/dL AST (5-31) U/L ALT (0-31) U/L Alkaline Phosphatase (39-117) U/L Total Protein (6.5-8.0) g/dL Albumin (3.5-5.0) g/dL Lipase (8-78) U/L Beta HCG, Quant mIU/mL Urine Color YELLOW Urine Appearance HAZY Urine pH 6.0 (5.0-8.0) Ur Specific Isabella 1.025 (1.005-1.025) Urine Protein NEG (NEG-TRACE) MG/DL Urine Glucose (UA) NEG (NEG) MG/DL Urine Ketones 15 (NEG) MG/DL Urine Blood 1+ H (NEG) Urine Nitrite NEG (NEG) Ur Leukocyte Esterase NEG (NEG) COVID-19 (RICK) (Negative) COVID-19 Clin Com Discharge Plan Discharge Clinical Impression: Pelvic pain Constipation Qualifiers: Constipation type: unspecified constipation type Qualified Code(s): K59.00 - Constipation, unspecified Instructions: Ovarian Cyst (ED), Constipation (ED), Pelvic Pain (ED) Additional Instructions: return to ED for any worsening symptoms or concerns today's US The uterus is anteverted, retroflexed and measures 7.9 cm in length, 4.1 cm AP and 4.4 cm in transverse dimension. There is an IUD in the endometrial canal, limiting evaluation of the endometrial thickness. The uterus is smooth in contour and has normal myometrial echogenicity. No visible fibroid. Adnexa: Both ovaries are visualized. There is normal color flow to the adnexa. There is no ovarian torsion. There is no pelvic ascites or fluid collection. Right ovary measures 3.3 x 2.0 x 1.2 cm and volume 4.2 mL. There is anechoic cyst measuring 1.2 x 1.0 x 1.5 cm. Previously, right ovary measured 2.7 x 1.4 x 1.5 cm and volume 3.0 mL. Left ovary measures 3.9 x 2.9 x 2.0 cm and volume 11.8 mL. There is a corpus luteal cyst or complex cyst measuring 2.7 x 2.0 x 2.3 cm. There is no free fluid in the cul-de-sac. IMPRESSION: 1.5 cm simple ovarian cyst right ovary. 2.7 cm corpus luteal cyst versus complex cyst of the left ovary. The uterus is unremarkable. There is an IUD in place. Prescriptions: New docusate sodium [Colace] 100 mg capsule 100 mg PO BID PRN (Reason: constipation) Qty: 30 0RF ondansetron 4 mg tablet,disintegrating 4 mg PO Q8H PRN (Reason: nausea and vomiting) Qty: 20 0RF senna 8.6 mg capsule 8.6 mg PO BEDTIME PRN (Reason: constipation) Qty: 30 0RF No Action ibuprofen 600 mg tablet 600 mg PO TID PRN (Reason: fever or pain) Qty: 14 0RF medroxyprogesterone [Provera] 10 mg tablet 10 mg PO DAILY Qty: 2 0RF Rx Instructions: take in total 20mg on 10/20 and 10/21 , then take 10 mg daily ibuprofen 600 mg tablet 600 mg PO Q8H PRN (Reason: pain) Qty: 14 0RF Referrals: Physician,Unknown J [Primary Care Provider] - 3 days (please follow up with your OBGYN) [facility] Past Medical History Attestation statement: The following information was validated with the patient. Medical History Miscarriage Muscular dystrophy Vaginal delivery Surgical History Hx of appendectomy Social History Social History Alcohol intake: never Patient Tobacco Use Status: Never used Tobacco Substance Use Type: Marijuana Advance Directives: No Advance Directives Information Provided: No Patient : No
[2021-05-03] MEDS: 0.9 % Sodium Chloride 1,000 ML 999 ML IVCONT (10:16)
[2021-05-03 10:32] VITALS: RESP 18
[2021-05-03] MEDS: ondansetron HCL 4 MG/2 ML VIAL IVPUSH (10:32)
[2021-05-03] MEDS: Morphine Sulfate 4 MG/ML CARTRIDGE IVPUSH (10:32)
[2021-05-03 11:44] LABS: MANUAL DIFF FLAG NO
[2021-05-03 11:47] LABS: Basophils Percent Auto 0.2 % (0-2); Eosinophils Percent Auto 0.2 % (0-4); Hematocrit 36.4 % (37.0-47.0); Hemoglobin 12.2 g/dl (12.0-16.0); Imm Gran Abs Auto 0.01 X10*3/uL (0.00-0.03); Imm Gran Pct Auto 0.2 % (0.0-0.4); Lymphocytes Absolute Auto 0.6 X10*3/uL (1.2-4.9); Lymphocytes Percent Auto 10.3 % (20-40); Mean Corpuscular HGB Conc 33.5 g/dl (31.0-35.0); Mean Corpuscular Hemoglobin 31.7 pg (27.0-33.0); Mean Corpuscular Volume 94.5 fL (80.0-98.0); Mean Platelet Volume 10.3 fL (9.4-12.3); Monocytes Absolute Auto 0.9 X10*3/uL (0.1-1.2); Monocytes Percent Auto 15.6 % (2-11); Neutrophils Percent Auto 73.5 % (45-73); Platelet Count 228 X10*3/uL (160-400); Red Blood Count 3.85 X10*6/uL (4.20-5.50); Red Cell Distribution Width 12.5 % (11.0-16.0); White Blood Count 5.5 X10*3/uL (4.8-10.8)
[2021-05-03 12:00] LABS: COVID-19 Test Negative (Negative)
[2021-05-03 12:12] LABS: HCG Quantitative < 2 mIU/mL
[2021-05-03 12:15] LABS: Alanine Aminotransferase 9 U/L (0-31); Albumin Level 3.9 g/dL (3.5-5.0); Alkaline Phosphatase 55 U/L (39-117); Anion Gap 9 (12-20); Aspartate Amino Transferase 14 U/L (5-31); Bilirubin Direct 0.2 mg/dL (0.0-0.5); Bilirubin Total 0.5 mg/dL (0.0-1.0); Blood Urea Nitrogen 8 mg/dL (9-16); Calcium 8.3 mg/dL (8.4-10.2); Carbon Dioxide 21 mmol/L (22-29); Chloride 112 mmol/L (96-108); Creatinine Clr Calc Pharmacy 87.1; Estimated Glomerular Filt Rate > 60; Glucose Random 89 mg/dL (60-115); Lipase 15 U/L (8-78); Magnesium 1.6 mg/dL (1.6-2.6); Potassium 3.6 mmol/L (3.3-5.1); Sodium 138 mmol/L (135-145); Total Protein 6.6 g/dL (6.5-8.0)
[2021-05-03] MEDS: Ketorolac Tromethamine 30 MG/ML VIAL IVPUSH (14:17)
[2021-05-03 15:19] VITALS: BP 127/49; PULSE 77; RESP 18; TEMP 36.8; O2SAT 99
[2021-05-03 16:24] LABS: Appearance Urine HAZY; Color Urine YELLOW; Glucose Urine UA NEG (NEG); Leukocyte Esterase Urine NEG (NEG); Nitrite Urine NEG (NEG); Specific Gravity - Urine 1.025 (1.005-1.025); UACC Culture Trigger NO; Urine Blood 1+ (NEG); Urine Ketones 15 MG/DL (NEG); Urine Protein NEG (NEG-TRACE)
[2021-05-03 16:59] LABS: Bacteria Urine 1+ /LPF; Mucus Urine 1+ /LPF; Squamous Epithelial Cell Urine TRACE /LPF
[2021-05-03 17:35] VITALS: BP 98/56; PULSE 73
== END 2021-05-03 17:40 | disposition home or self-care (01) ==
PROVIDERS: Emergency Provider Emergency Medicine
DX: R10.2 Pelvic and perineal pain (principal); K59.00 Constipation, unspecified; N20.0 Calculus of kidney; Z20.822 Contact with and (suspected) exposure to COVID-19
CPT/HCPCS: 74176; 76830; 76856; 80048; 80076; 81001; 83690; 83735; 84702; 85025; 87635; 96361; 96374; 96375; 99284; J1885; J2270; J2405

== ENCOUNTER 2021-11-22 01:13 | Emergency (ER) | payer OTHER, SELFPAY ==
[2021-11-22 01:17] VITALS: BP 104/69; PULSE 80; O2SAT 99
[2021-11-22 01:37] VITALS: BP 115/66; PULSE 92; RESP 20; TEMP 36.8; O2SAT 100; BMI 24.3
[2021-11-22 02:01] LABS: MANUAL DIFF FLAG NO
[2021-11-22 02:02] LABS: Basophils Percent Auto 0.2 % (0-2); Eosinophils Absolute Auto 0.2 X10*3/uL (0.0-0.4); Eosinophils Percent Auto 1.3 % (0-4); Hematocrit 40.1 % (37.0-47.0); Hemoglobin 13.5 g/dl (12.0-16.0); Imm Gran Abs Auto 0.04 X10*3/uL (0.00-0.03); Imm Gran Pct Auto 0.3 % (0.0-0.4); Lymphocytes Absolute Auto 1.7 X10*3/uL (1.2-4.9); Lymphocytes Percent Auto 12.5 % (20-40); Mean Corpuscular HGB Conc 33.7 g/dl (31.0-35.0); Mean Corpuscular Hemoglobin 30.3 pg (27.0-33.0); Mean Corpuscular Volume 89.9 fL (80.0-98.0); Mean Platelet Volume 9.3 fL (9.4-12.3); Monocytes Absolute Auto 1.2 X10*3/uL (0.1-1.2); Monocytes Percent Auto 8.8 % (2-11); Neutrophils Absolute Auto 10.5 x10*3/uL (2.0-8.3); Neutrophils Percent Auto 76.9 % (45-73); Platelet Count 387 X10*3/uL (160-400); Red Blood Count 4.46 X10*6/uL (4.20-5.50); Red Cell Distribution Width 13.4 % (11.0-16.0); White Blood Count 13.7 X10*3/uL (4.8-10.8)
--- NOTE | 2021-11-22 02:17 | ED.ABDPAIN ---
HPI - Abdominal Pain General Chief Complaint: Abdominal Pain Stated Complaint: Abd Pain Time Seen by Provider: 11/22/21 02:14 Source: patient Mode of arrival: ambulatory Limitations: no limitations History of Present Illness HPI narrative: Patient with abdominal pain for several years off and on been to multiple doctors and PCP if has not seen gastroenterology feel nauseated with abdominal pain no vomiting no diarrhea had normal bowel movements has history of anxiety and smokes marijuana which smoked about 1 week ago and pain got worse for last 3 days patient had her meals today and had water previous CT scans were negative except for constipation patient denies any known gluten allergies Related Data Previous Rx's Medication Instructions Recorded ibuprofen 600 mg tablet 600 mg PO TID PRN fever or pain 06/30/20 #14 tabs medroxyprogesterone 10 mg tablet 10 mg PO DAILY #2 tabs 10/19/20 (Provera) ibuprofen 600 mg tablet 600 mg PO Q8H PRN pain #14 tabs 12/13/20 docusate sodium 100 mg capsule 100 mg PO BID PRN constipation #30 05/03/21 (Colace) caps ondansetron 4 mg disintegrating 4 mg PO Q8H PRN nausea and 05/03/21 tablet vomiting #20 tabs sennosides 8.6 mg capsule (senna) 8.6 mg PO BEDTIME PRN constipation 05/03/21 #30 caps frsepynkwi-jhllzgsdlcfgz-xqbrbsio 1 cap PO Q6H PRN Abdominal Pain 11/22/21 50 mg-300 mg-40 mg capsule #20 caps (Fioricet) Allergies Allergy/AdvReac Type Severity Reaction Status Date / Time fexofenadine [From Nathalia] Allergy Dry Mucus Verified 11/22/21 01:37 Membranes promethazine [From Phenergan] Allergy Shakiness Verified 11/22/21 01:37 shellfish derived Allergy Anaphylaxis Verified 11/22/21 01:37 Review of Systems Review of Systems Yes all other systems are reviewed and are negative PMFSH Past Medical History Medical History Miscarriage Muscular dystrophy Vaginal delivery Surgical History Hx of appendectomy Social History Social History Alcohol intake: never Patient Tobacco Use Status: Never used Tobacco Substance Use Type: Marijuana Advance Directives: No Advance Directives Information Provided: No Physical Exam ED Vital Signs: Vital Signs - 24 hr 11/22/21 01:37 Temperature 98.3 F Pulse Rate 92 Respiratory Rate 20 Blood Pressure 115/66 Pulse Oximetry 100 Oxygen Delivery Method Room Air BMI result Body Mass Index 24.3 Appearance: Alert. Oriented X3. No acute distress. Anxious Eyes: PERRLA, No Nystagmus ENT: Pharynx normal. Oral Mucosa moist Neck: Normal inspection. Neck supple. CVS: Normal heart rate and rhythm. Pulses normal. Respiratory: No respiratory distress. Equal air entry bilateral, no wheezing/rales/rhonchi Abdomen: Soft , diffuse abdominal tenderness no rebound tenderness guarding. Bowel sounds are present, no mass palpable, no CVA tenderness Skin: Skin warm and dry. Normal skin color. Normal skin turgor. Extremities: No lower extremity edema. No calf tenderness Neuro: Oriented X 3. MDM - Abdominal Pain MDM Narrative Medical decision making narrative: [phone] Patient clinically possibly has abdominal migraine with history of migraines will try Imitrex which patient refused discharge patient home on [facility] Lab Data Attestation: I reviewed the patient's lab results. Result diagrams: 11/22/21 01:57 11/22/21 01:57 Labs: Lab Results 11/22/21 11/22/21 11/22/21 Range/Units 01:57 01:57 04:58 WBC 13.7 H (4.8-10.8) X10*3/uL RBC 4.46 (4.20-5.50) X10*6/uL Hgb 13.5 (12.0-16.0) g/dl Hct 40.1 (37.0-47.0) % MCV 89.9 (80.0-98.0) fL MCH 30.3 (27.0-33.0) pg MCHC 33.7 (31.0-35.0) g/dl RDW 13.4 (11.0-16.0) % Plt Count 387 D (160-400) X10*3/uL MPV 9.3 L (9.4-12.3) fL Immature Gran % (Auto) 0.3 (0.0-0.4) % Neut % (Auto) 76.9 H (45-73) % Lymph % (Auto) 12.5 L (20-40) % Barry % (Auto) 8.8 (2-11) % Eos % (Auto) 1.3 (0-4) % Baso % (Auto) 0.2 (0-2) % Lymph # (Auto) 1.7 (1.2-4.9) X10*3/uL Barry # (Auto) 1.2 (0.1-1.2) X10*3/uL Eos # (Auto) 0.2 (0.0-0.4) X10*3/uL Baso # (Auto) 0.0 (0.0-0.2) X10*3/uL Abs Immat Gran (auto) 0.04 H (0.00-0.03) X10*3/uL Absolute Neuts (auto) 10.5 H (2.0-8.3) x10*3/uL Absolute Nucleated RBC 0.000 (0.0-0.012) X10*3/uL Nucleated RBC % (auto) 0.0 (0.0-0.2) /100WBC Sodium 139 (135-145) mmol/L Potassium 4.2 (3.3-5.1) mmol/L Chloride 104 (96-108) mmol/L Carbon Dioxide 23 (22-29) mmol/L Anion Gap 16 (12-20) BUN 21 H D (9-16) mg/dL Creatinine 0.77 (0.5-1.4) mg/dL Estim Creat Clear Calc 77.5 Estimated GFR > 60 Random Glucose 95 (60-115) mg/dL Calcium 9.6 D (8.4-10.2) mg/dL Total Bilirubin 0.3 (0.0-1.0) mg/dL AST 20 D (5-31) U/L ALT 17 (0-31) U/L Alkaline Phosphatase 81 D (39-117) U/L Total Protein 7.7 (6.5-8.0) g/dL Albumin 4.4 (3.5-5.0) g/dL Urine Color Urine Appearance Urine pH (5.0-8.0) Ur Specific Switchback (1.005-1.025) Urine Protein (Neg-Trace) mg/dL Urine Glucose (UA) (Negative) mg/dL Urine Ketones (Negative) mg/dL Urine Blood (Negative) Urine Nitrite (Negative) Ur Leukocyte Esterase (Negative) Urine RBC (0-2) /HPF Urine WBC (0-5) /HPF Ur Squamous Epith Cells (0-2) /HPF Urine Bacteria (None Seen) Hyaline Casts (0-2) /LPF COVID-19 (RICK) Negative (Negative) COVID-19 Clin Com See Note 11/22/21 Range/Units 05:19 WBC (4.8-10.8) X10*3/uL RBC (4.20-5.50) X10*6/uL Hgb (12.0-16.0) g/dl Hct (37.0-47.0) % MCV (80.0-98.0) fL MCH (27.0-33.0) pg MCHC (31.0-35.0) g/dl RDW (11.0-16.0) % Plt Count (160-400) X10*3/uL MPV (9.4-12.3) fL Immature Gran % (Auto) (0.0-0.4) % Neut % (Auto) (45-73) % Lymph % (Auto) (20-40) % Barry % (Auto) (2-11) % Eos % (Auto) (0-4) % Baso % (Auto) (0-2) % Lymph # (Auto) (1.2-4.9) X10*3/uL Barry # (Auto) (0.1-1.2) X10*3/uL Eos # (Auto) (0.0-0.4) X10*3/uL Baso # (Auto) (0.0-0.2) X10*3/uL Abs Immat Gran (auto) (0.00-0.03) X10*3/uL Absolute Neuts (auto) (2.0-8.3) x10*3/uL Absolute Nucleated RBC (0.0-0.012) X10*3/uL Nucleated RBC % (auto) (0.0-0.2) /100WBC Sodium (135-145) mmol/L Potassium (3.3-5.1) mmol/L Chloride (96-108) mmol/L Carbon Dioxide (22-29) mmol/L Anion Gap (12-20) BUN (9-16) mg/dL Creatinine (0.5-1.4) mg/dL Estim Creat Clear Calc Estimated GFR Random Glucose (60-115) mg/dL Calcium (8.4-10.2) mg/dL Total Bilirubin (0.0-1.0) mg/dL AST (5-31) U/L ALT (0-31) U/L Alkaline Phosphatase (39-117) U/L Total Protein (6.5-8.0) g/dL Albumin (3.5-5.0) g/dL Urine Color Yellow Urine Appearance Clear Urine pH 6.5 (5.0-8.0) Ur Specific Switchback 1.025 (1.005-1.025) Urine Protein Negative (Neg-Trace) mg/dL Urine Glucose (UA) Negative (Negative) mg/dL Urine Ketones Negative (Negative) mg/dL Urine Blood Negative (Negative) Urine Nitrite Negative (Negative) Ur Leukocyte Esterase Small (1+) H (Negative) Urine RBC 3-5 H (0-2) /HPF Urine WBC 0-5 (0-5) /HPF Ur Squamous Epith Cells 6-10 (0-2) /HPF Urine Bacteria 3+ (None Seen) Hyaline Casts 0-2 (0-2) /LPF COVID-19 (RICK) (Negative) COVID-19 Clin Com Discharge Plan Discharge Clinical Impression: Abdominal migraine Patient Disposition: Home, Self-Care Instructions: Abdominal Pain (ED) Additional Instructions: You likely have abdominal migraine Take Fioricet as prescribed when you get the pain Follow with smocker Prescriptions: New bgvowqmvfe-aqenaqsaokahi-gpgf [Fioricet] 50-300-40 mg capsule 1 cap PO Q6H PRN (Reason: Abdominal Pain) Qty: 20 0RF No Action ibuprofen 600 mg tablet 600 mg PO TID PRN (Reason: fever or pain) Qty: 14 0RF medroxyprogesterone [Provera] 10 mg tablet 10 mg PO DAILY Qty: 2 0RF Rx Instructions: take in total 20mg on 10/20 and 10/21 , then take 10 mg daily ibuprofen 600 mg tablet 600 mg PO Q8H PRN (Reason: pain) Qty: 14 0RF docusate sodium [Colace] 100 mg capsule 100 mg PO BID PRN (Reason: constipation) Qty: 30 0RF ondansetron 4 mg tablet,disintegrating 4 mg PO Q8H PRN (Reason: nausea and vomiting) Qty: 20 0RF senna 8.6 mg capsule 8.6 mg PO BEDTIME PRN (Reason: constipation) Qty: 30 0RF Referrals: Sarah James MD [Physician] - 1 week Interventions: ED Discharge Assessment Last Done: 11/22/21 06:16 Discharge Date/Time: 11/22/21 06:18
[2021-11-22 02:24] LABS: Alanine Aminotransferase 17 U/L (0-31); Albumin Level 4.4 g/dL (3.5-5.0); Alkaline Phosphatase 81 U/L (39-117); Anion Gap 16 (12-20); Aspartate Amino Transferase 20 U/L (5-31); Bilirubin Total 0.3 mg/dL (0.0-1.0); Blood Urea Nitrogen 21 mg/dL (9-16); Calcium 9.6 mg/dL (8.4-10.2); Carbon Dioxide 23 mmol/L (22-29); Chloride 104 mmol/L (96-108); Creatinine Clr Calc Pharmacy 77.5; Estimated Glomerular Filt Rate > 60; Glucose Random 95 mg/dL (60-115); Potassium 4.2 mmol/L (3.3-5.1); Sodium 139 mmol/L (135-145); Total Protein 7.7 g/dL (6.5-8.0)
[2021-11-22 05:26] LABS: Appearance Urine Clear; Color Urine Yellow; Glucose Urine UA Negative (Negative); Leukocyte Esterase Urine Small (1+) (Negative); Nitrite Urine Negative (Negative); PH 6.5 (5.0-8.0); Specific Gravity - Urine 1.025 (1.005-1.025); Urine Blood Negative (Negative); Urine Ketones Negative (Negative); Urine Protein Negative (Neg-Trace)
[2021-11-22 05:30] LABS: COVID-19 Test Negative (Negative)
[2021-11-22 05:41] LABS: Bacteria Urine 3+ (None Seen); Hyaline Casts Urine 0-2 /LPF (0-2); UACC Culture Trigger YES; WBC Urine 0-5 /HPF (0-5)
--- NOTE | 2021-11-22 06:17 | PC.NURSE ---
This RN did not see this Pt, this RN in room 4 with ICU Pt.
== END 2021-11-22 06:18 | disposition home or self-care (01) ==
PROVIDERS: Emergency Provider Internal Medicine
DX: G43.909 Migraine, unspecified, not intractable, without status migrainosus (principal); Z20.822 Contact with and (suspected) exposure to COVID-19; Z79.899 Other long term (current) drug therapy
CPT/HCPCS: 36415; 80053; 81001; 85025; 87086; 87635; 99283; 99284

== ENCOUNTER 2022-09-17 08:38 | Outpatient (REF) | payer OTHER, SELFPAY ==
[2022-09-17 09:43] LABS: MANUAL DIFF FLAG NO
[2022-09-17 10:09] LABS: Basophils Percent Auto 0.3 % (0-2); Eosinophils Percent Auto 0.5 % (0-4); Hematocrit 38.4 % (37.0-47.0); Hemoglobin 12.6 g/dl (12.0-16.0); Imm Gran Abs Auto 0.02 X10*3/uL (0.00-0.03); Imm Gran Pct Auto 0.3 % (0.0-0.4); Lymphocytes Absolute Auto 1.6 X10*3/uL (1.2-4.9); Lymphocytes Percent Auto 20.7 % (20-40); Mean Corpuscular HGB Conc 32.8 g/dl (31.0-35.0); Mean Corpuscular Hemoglobin 30.7 pg (27.0-33.0); Mean Corpuscular Volume 93.7 fL (80.0-98.0); Mean Platelet Volume 10.3 fL (9.4-12.3); Monocytes Absolute Auto 0.7 X10*3/uL (0.1-1.2); Neutrophils Absolute Auto 5.4 x10*3/uL (2.0-8.3); Neutrophils Percent Auto 69.2 % (45-73); Platelet Count 390 X10*3/uL (160-400); Red Cell Distribution Width 12.8 % (11.0-16.0); White Blood Count 7.8 X10*3/uL (4.8-10.8)
[2022-09-17 10:56] LABS: Erythrocyte Sedimentation Rate 13 MM/HR (0-20)
[2022-09-17 11:38] LABS: Alanine Aminotransferase 12 U/L (0-31); Albumin Level 4.4 g/dL (3.5-5.0); Alkaline Phosphatase 77 U/L (39-117); Anion Gap 13 (12-20); Aspartate Amino Transferase 15 U/L (5-31); Bilirubin Total 0.6 mg/dL (0.0-1.0); Blood Urea Nitrogen 10 mg/dL (9-16); C Reactive Protein < 0.10 mg/dL (< or = 0.50); Calcium 9.6 mg/dL (8.4-10.2); Carbon Dioxide 21 mmol/L (22-29); Chloride 110 mmol/L (96-108); Estimated Glomerular Filt Rate > 60; Glucose Random 92 mg/dL (60-115); Potassium 3.7 mmol/L (3.3-5.1); Sodium 140 mmol/L (135-145); Total Protein 7.9 g/dL (6.5-8.0)
[2022-09-17 11:47] LABS: HBS Num1 0.57 mIU/mL (0-7.99); HBsAGNum1 0.49 S/CO (0.00-0.99); HIV AB/AG Nonreactive (Nonreactive); HIV Num 1 0.06 S/CO (0.00-0.99); Hepatitis A Antibody IgM 0.31 Index (0-0.79); Hepatitis B Core Antibody Nonreactive (Nonreactive); Hepatitis B Surface Antigen Negative (Negative); ~HepC Num1 0.12 S/CO (0.00-0.79); ~Hepatitis A Antibody IgM Nonreactive (Nonreactive); ~Hepatitis B Surface Antibody NONREACTIVE (Nonreactive); ~Hepatitis C Antibody Nonreactive (Nonreactive)
[2022-09-17 11:56] LABS: Thyroid Stimulating Hormone 0.57 uIU/mL (0.32-4.0)
[2022-09-19 18:09] LABS: Transglutaminase IgA <1.0 U/mL
[2022-09-25 22:03] LABS: Endomysial IgA Antibody Negative (Negative)
== END 2022-09-17 08:39 | disposition home or self-care (01) ==
LOC: HO.LAB 08:38
PROVIDERS: Visit Provider Physician Assistant
DX: K58.0 Irritable bowel syndrome with diarrhea (principal); R19.8 Other specified symptoms and signs involving the digestive system and abdomen; R63.4 Abnormal weight loss; R10.9 Unspecified abdominal pain; G89.29 Other chronic pain; R79.89 Other specified abnormal findings of blood chemistry; A04.8 Other specified bacterial intestinal infections; Z79.899 Other long term (current) drug therapy
CPT/HCPCS: 36415; 80053; 84443; 85025; 85652; 86140; 86231; 86364; 86704; 86706; 86709; 86803; 87340; 87389; 99202

== ENCOUNTER 2022-10-15 09:34 | Outpatient (REF) | payer OTHER, SELFPAY ==
--- NOTE | ~2022-10-15 | XR_ITS ---
EXAMINATION: XR CHEST CLINICAL INFORMATION: Abnormal weight loss COMPARISON: None available. TECHNIQUE: 2 views of the chest were obtained. FINDINGS: No significant abnormality is noted involving the heart, lungs or mediastinum. There is marked curve of the thoracic spine, convex right in the upper portion and convex left in the lower portion. Bilateral nipple markers are noted. XR/XR chest 2V IMPRESSION: No acute cardiopulmonary disease.
== END 2022-10-15 09:35 | disposition home or self-care (01) ==
LOC: HO.LAB 09:34
PROVIDERS: Visit Provider Physician Assistant
DX: R63.4 Abnormal weight loss (principal); R10.9 Unspecified abdominal pain; G71.00 Muscular dystrophy, unspecified; R12 Heartburn; R11.0 Nausea
CPT/HCPCS: 71046; 99212

== ENCOUNTER 2022-10-15 09:34 | Outpatient (AMB) | payer OTHER, SELFPAY ==
--- NOTE | 2022-10-15 09:42 | A.OFFVIS_ITS ---
Intake Vital Signs 10/15/22 09:51 Height 4 ft 11 in Weight 108 lb BMI 21.8 BP 94/51 L Blood Pressure Location Lt brachial Position Sitting Pulse 80 Intake Visit Reasons: 4 week follow up Intake Note: Patient follow up for abdominal pain, lab results. Patient cc: Nauseas, abdominal pain on and off, loosing weight, and heartburn on and off. Superannuation Clerk Required: No Accompanied by: Self / Same As Patient Allergies fexofenadine [From Nathalia] Allergy (Verified 10/15/22 09:41) Dry Mucus Membranes promethazine [From Phenergan] Allergy (Verified 10/15/22 09:41) Shakiness shellfish derived Allergy (Verified 10/15/22 09:41) Anaphylaxis Medication List - Last Reconciled 10/15/22 by Vangie Marquez PA-C sennosides (senna) 8.6 mg PO BEDTIME PRN HPI HPI Comments History of Present Illness Details A 36 y/o female MD good appetite- unable to gain/ maintain weight-occ. 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 wine- She admits she is obsessed with her weight- since 17 y/o- she hides her scale She does not want to see psych- she does not want him getting into her head MD-has not followed up with neurology in more than a year She has no vomiting, hematemesis, hematochezia fever or chills [facility] Medical History (Updated 10/15/22 @ 13:21 by Vangie Marquez PA-C) Miscarriage Muscular dystrophy Vaginal delivery Surgical History Hx of appendectomy Social History Household Members Other:: single, 13 y/o Alcohol intake: never Patient Tobacco Use Status: Never used Tobacco Substance Use Type: Marijuana Review of Systems Const All systems reviewed & are unremarkable except as noted in HPI and below Denies anorexia, Denies chills, Denies fatigue, Denies fever(s), Reports headache(s), Denies night sweats, Denies poor appetite and Reports weight loss ENT Reports headache(s) Card Denies chest pain and Denies dyspnea Resp Denies dyspnea GI Denies abdominal pain, Denies hematochezia, Denies diarrhea, Reports nausea and Denies vomiting Neuro Reports headache(s) Endo Denies fatigue Physical Exam Vital Signs: Last Vital Signs Pulse 80 10/15/22 09:51 BP 94/51 L 10/15/22 09:51 BMI result Body Mass Index 21.8 Resp Effort & Inspection: normal respiratory effort and able to speak in complete sentences Auscultation: clear to auscultation bilaterally Skin General skin exam: no rashes or lesions noted Extrem General: Yes full ROM Psych Appearance: well kempt Mental Status: mental status grossly normal Affect: Anxious affect present Attitude: cooperative Thought content: Normal thought content present Results Reviewed Results Reviewed: labs Assessment & Plan Assessment & Plan (1) Weight loss: Comment: Likely functional component, Weight fluctuating-very focused on body image- She does have documented weight loss updated labs-no finding to account for symptoms Will get chest x-ray to follow weight loss workup Code(s): R63.4 - Abnormal weight loss Plan: Discussed psychotherapy- she declined Return 1 month weight monitor (2) Muscular dystrophy: Code(s): G71.00 - Muscular dystrophy, unspecified Plan: A referral placed to previous established neurologist Orders: Orders XR chest 2V Today R63.4 - Abnormal weight loss Referrals Neurology Referral G71.00 - Muscular dystrophy, unspecified Patient Instructions: Very pleasant 36-year-old female continued weight loss despite reported good appetite Continue to monitor weight Follow-up 1 month for recheck Neurology referral placed Declined psychotherapy Coding Level of Care Code Est Pt Level 3 (12315) Diagnoses Weight loss R63.4 Muscular dystrophy G71.00 Time Spent (min) 30
[2022-10-15 09:51] VITALS: BP 94/51; PULSE 80; BMI 21.8
== END 2022-10-15 10:17 | disposition home or self-care (01) ==
PROVIDERS: Visit Provider Physician Assistant
DX: R63.4 Abnormal weight loss (principal); G71.00 Muscular dystrophy, unspecified
CPT/HCPCS: 99213

== ENCOUNTER 2023-04-01 12:47 | Emergency (ER) | payer OTHER, SELFPAY ==
[2023-04-01 13:23] VITALS: BP 127/82; PULSE 90; RESP 18; TEMP 36.7; O2SAT 98; BMI 22.1
--- NOTE | 2023-04-01 13:23 | ED.SOB ---
HPI - SOB/Dyspnea General Chief Complaint: Dyspnea Stated Complaint: Diff Breathing Etc Exposure to Rodents Time Seen by Provider: 04/01/23 14:41 Source: patient and family Mode of arrival: ambulatory Limitations: no limitations History of Present Illness HPI Narrative: This is a 37-year-old female presenting with daughter was concerned that she has been having fatigue, malaise, A/G throat, intermittent cough, chest tightness and wheezing. For the past 3 days, the patient's daughter has been sick with similar symptoms. Patient adds that they recently moved into a new house a few months ago that she knows Has a lot of mice and she does not know if this is contributing to symptoms. Denies fevers, chills, nausea,? vomiting, headache, visual changes, dizziness, abd pain, cp.? Related Data Previous Rx's Medication Instructions Recorded sennosides 8.6 mg capsule (senna) 8.6 mg PO BEDTIME PRN constipation 05/03/21 #30 caps albuterol sulfate 90 mcg/actuation 2 inh inhalation Q4-6H PRN 04/01/23 breath activated powder inhaler shortness of breath or wheezing #1 ea loratadine 10 mg tablet 10 mg PO DAILY #30 tabs 04/01/23 prednisone 20 mg tablet 40 mg (2 x 20 mg) PO DAILY 5 days 04/01/23 #10 tabs Allergies Allergy/AdvReac Type Severity Reaction Status Date / Time fexofenadine [From Nathalia] Allergy Dry Mucus Verified 04/01/23 13:26 Membranes promethazine [From Phenergan] Allergy Shakiness Verified 04/01/23 13:26 shellfish derived Allergy Anaphylaxis Verified 04/01/23 13:26 Review of Systems Review of Systems: Yes all other systems are reviewed and are negative PMFSH Past Medical History Attestation statement: The following information was validated with the patient. Source: old records reviewed and nursing notes reviewed Onset Date is defined in the Problem List Problems that require an onset date and time if occurred within 24 hrs of arrival to the ED Aortic Dissection and Rupture; Neurologic impairment; Cardiopulmonary Arrest; Endotracheal Intubation; Insertion or Replacement of Mechanical Circulatory Assist Device Medical History Vaginal delivery Miscarriage Muscular dystrophy Surgical History Hx of appendectomy Social History Social History Household Members Other:: single, 13 y/o Alcohol intake: never Patient Tobacco Use Status: Never used Tobacco Substance Use Type: Marijuana Advance Directives: No Advance Directives Information Provided: No Physical Exam Vital Signs: Vital Signs: Last Vital Signs Temp 98.1 F 04/01/23 13:23 Pulse 90 04/01/23 13:23 Resp 18 04/01/23 13:23 BP 127/82 04/01/23 13:23 Pulse Ox 98 04/01/23 13:23 O2 Del Method Room Air 04/01/23 13:23 BMI result Body Mass Index 22.1 vss Appearance: Alert.? Oriented X3.? No acute distress.? Head: Normocephalic, atraumatic, no step-offs or deformities Eyes: Pupils equal, round and reactive to light.? CVS: Normal heart rate and rhythm.? Pulses normal.? Respiratory: No respiratory distress.? Breath sounds faint expiratory wheezing.? Abdomen: Soft and nontender.? Skin: Skin warm and dry.? Normal skin color.? Normal skin turgor.? Extremities: No lower extremity edema.? No calf ttp. 5/5 strength to bilateral upper and lower extremities Back: No midline tenderness, no C-spine tenderness, full range of motion, no CVA tenderness bilaterally Neuro: Oriented X 3.? No motor deficit.? No sensory deficit. CN 2-12 intact Course Course Course Narrative: RME: 37 yo F w/no sig PMHx presenting to the ED c/o SOB, cough, congestion, chest tightness s/p moving into apartment that is full of mice. patient believes mice are causing sx. tried OTC Nathalia w/o relief. daugter here w/similar sx viral testing, CXR ordered Full HPI, ROS and PE to be performed by primary ED provider. Reevaluation(s) Reevaluation #1: COVID, influenza negative. Chest x-ray no acute pulmonary disease. Patient to be discharged home with prednisone, loratadine, albuterol. Educated patient on diagnosis and treatment plan, answered all question, patient verbalizes understanding. At this time patient will be discharged home, advised to return with new or worsening symptoms. Educated on worrisome signs and symptoms and when to return. At this time I feel comfortable discharge home. Time: 16:26 Medical Decision Making Medical Decision Making [facility] Narrative: ??49-year-old female presents with viral symptoms for the past 4 days. ??Physical examination benign ?This is likely viral flu versus COVID versus RSV versus bronchitis.? Unlikely pulmonary embolism, pneumonia, ACS, retropharyngeal abscess, peritonsillar abscess, epiglottitis.? No signs of acute respiratory distress ?Plan viral testing Differential Diagnosis Differential Diagnoses: The differential diagnosis associated with the presentation includes ?This is likely viral flu versus COVID versus RSV versus bronchitis.? Unlikely pulmonary embolism, pneumonia, ACS, retropharyngeal abscess, peritonsillar abscess, epiglottitis.? No signs of acute respiratory distress Admission/Observation Consideration of admission/observation: Escalation of care including admission/observation considered [facility] Lab Data [facility] Lab Attestation statement: I reviewed the patient's lab results. Labs: Lab Results 04/01/23 Range/Units 13:31 COVID-19 (RICK) Negative (Negative) COVID-19 Clin Com See Note Influenza Type A (DARSHAN) Negative (Negative) Influenza Type B (DARSHAN) Negative (Negative) Influenza A & B Note See Note Independent Interpretation I performed an independent interpretation of an: Plain X-Ray (XR/XR chest 2V IMPRESSION: No acute cardiopulmonary disease. ) Radiology Impression Discussion of test interpretation with radiology: I have reviewed the radiologist's reading. Chronic Conditions Patient?s care impacted by: Other (Muscular dystrophy, asthma, allergy) Discharge Plan Discharge Clinical Impression: Asthma with exacerbation, Viral illness, Allergies Patient Disposition: Home, Self-Care Instructions: Asthma (ED), Viral Syndrome (ED), Allergy Testing (ED) Additional Instructions: Take your medications as prescribed. If you were prescribed antibiotics today, it is important that you take your medication to their entirety, do not skip any doses, do not finish them early. Follow-up with your primary care provider this week. Return to the emergency department with new or worsening symptoms. Such as fevers, chills, chest pain, shortness of breath, nausea, vomiting, dizziness, headache, vision changes, lethargy In case of emergency call 911 Do not take loratadine and Zyrtec together. XR/XR chest 2V IMPRESSION: No acute cardiopulmonary disease. Prescriptions: New albuterol sulfate 90 mcg/actuation aerosol powdr breath activated 2 inh inhalation Q4-6H PRN (Reason: shortness of breath or wheezing) Qty: 1 0RF prednisone 20 mg tablet 40 mg PO DAILY 5 Days Qty: 10 0RF loratadine 10 mg tablet 10 mg PO DAILY Qty: 30 0RF No Action senna 8.6 mg capsule 8.6 mg PO BEDTIME PRN (Reason: constipation) Qty: 30 0RF Referrals: Physician,Unknown J [Primary Care Provider] - 2 days Stand Alone Forms: Work/School Release
[2023-04-01 17:03] VITALS: BP 121/79; PULSE 89; RESP 18; TEMP 36.7; O2SAT 98
--- NOTE | 2023-04-01 17:03 | PC.NURSE ---
patient a&ox3, ambulating with steady gait, pt testing has come back negative, will be discharged to home.
== END 2023-04-01 17:08 | disposition home or self-care (01) ==
PROVIDERS: Emergency Provider Emergency Medicine Emergency Medical Services
DX: J45.901 Unspecified asthma with (acute) exacerbation (principal); B34.9 Viral infection, unspecified; R05.9 Cough, unspecified; G71.00 Muscular dystrophy, unspecified; Z11.52 Encounter for screening for COVID-19
CPT/HCPCS: 71046; 87502; 87635; 99283

== ENCOUNTER 2024-01-02 20:13 | Emergency (ER) | payer OTHER, SELFPAY ==
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
[2024-01-02 20:15] VITALS: BP 115/77; PULSE 89; RESP 18; TEMP 37.1; O2SAT 97; BMI 24.2
--- OUTSIDE RECORDS SUMMARY | 2024-01-02 20:49 | XMS_ITS | Continuity of Care Document ---
Author Organization [facility] Address [address] [place] [id number]- Care Team Providers Care Industrial Order Clerk Name Role Phone Not on Staff, PCP Primary Care Physician Unavail able Encounter [facility] Date(s): 03/04/19 - 04/08/19 [facility] [address] [id number]- [facility] Attending Physician: Not on Staff, Attending MD Allergies, Adverse Reactions, Alerts Substance Reaction Severity Status shellfish Active Phenergan Shaking Active Nathalia severe nose bleeds Active Seafood anaphylaxis Active Immunizations Given and Recorded Vaccine Date Status Refusal Reason Human Papillomavirus Vaccine 1 08/24/12 Given Human Papillomavirus Vaccine 04/29/12 Given Human Papillomavirus Vaccine 02/17/07 Given influenza virus vaccine, inactivated 2 02/02/12 Gi barbara influenza virus vaccine, inactivated 05/27/11 Give n tetanus/diphtheria/pertussis, acel(Tdap) 05/01/09 Given influ virus vac, H1N1, inactive(oldterm) 3 02/12/09 Given Influenza Inactive (IM) (oldterm) 4 12/22/08 Given Influenza Inactive (IM) (oldterm) 5 03/06/00 Given Tet/Diphth/Acel, Pertussis (oldterm) 02/17/07 Give n Meningococcal Conjugate Vaccine 02/17/07 Given Influenza Virus Vaccine (oldterm) 6 02/04/07 Given tetanus-diphtheria toxoids (Td) 7 10/12/01 Given tetanus-diphtheria toxoids (Td) 8 07/03/94 Given Measles/Mumps/Rubella Virus Vaccine 9 07/14/96 Giv en Measles/Mumps/Rubella Virus Vaccine 10 07/03/94 Gi barbara Measles/Mumps/Rubella Virus Vaccine 11 08/14/88 Gi barbara Poliovirus Vaccine, Inactivated 12 07/03/94 Given Poliovirus Vaccine, Inactivated 13 06/15/91 Given Poliovirus Vaccine, Inactivated 14 06/07/87 Given Poliovirus Vaccine, Inactivated 15 04/16/87 Given Poliovirus Vaccine, Inactivated 16 02/01/87 Given Hepatitis B Vaccine (old term) 17 02/26/93 Given Hepatitis B Vaccine (old term) 18 04/28/92 Given Hepatitis B Vaccine (old term) 19 10/27/91 Given Diphth/Pertussis, Whl Cell/Tet(oldterm) 20 06/15/91 Given Diphth/Pertussis, Whl Cell/Tet(oldterm) 21 08/14/88 Given Diphth/Pertussis, Whl Cell/Tet(oldterm) 22 06/07/87 Given Diphth/Pertussis, Whl Cell/Tet(oldterm) 23 04/16/87 Given Diphth/Pertussis, Whl Cell/Tet(oldterm) 24 02/01/87 Given Haemophilus B Conj Vaccine (oldterm) 25 08/14/88 G iven 1Admin Note: VIS given 2Admin Note: VIS 10-08 3Admin Note: jan 05 4Admin Note: VIS GIVEN 11/07/08 5Admin Note: HX VARICELLA 6Admin Note: mfd by sanofi vis 10/12/06 7Admin Note: TD 8Admin Note: TD 9Admin Note: MMR 10Admin Note: MMR 11Admin Note: MMR 12Admin Note: IPV 13Admin Note: IPV 14Admin Note: IPV 15Admin Note: IPV 16Admin Note: IPV 17Admin Note: HEP B. unknown day 18Admin Note: HEP B. unknown day 19Admin Note: HEP B. unknown day 20Admin Note: DTP 21Admin Note: DTP 22Admin Note: DTP 23Admin Note: DTP 24Admin Note: DTP 25Admin Note: HIB Problem List Condition Effective Dates Status Health Status Inform ant Academic underachievement(Confirmed) Active Xihobbj-Afuvg-Nzqmc disease( Confirmed) 1 Active Depression(Confirmed) Active HEADACHE(Confirmed) 2 Active Muscular dystrophy(Confirmed) Active 1followed at [facility] 2had negative CT, sent to Aakash Sarvet for possible SSRI Social History Social History Type Response Smoking Status Never smoker; Tobacc o user in household: No entered on: 07/06/14 Sex
--- OUTSIDE RECORDS SUMMARY | 2024-01-02 20:49 | XMS_ITS | Continuity of Care Document ---
Author Organization [facility] n's [facility] Address [address] [place] [address]- Care Team Providers Care Machine Wedger Name Role Phone Not on Staff, PCP Primary Care Physician Unavail able Encounter [facility] Date(s): 03/09/19 - 03/19/19 [facility] [address] [address] Attending Physician: Armando Ortiz Admitting Physician: Armando Ortiz Referring Physician: AdmArmando torres Allergies, Adverse Reactions, Alerts Substance Reaction Severity [...] Health Status Inform ant Academic underachievement(Confirmed) Active Vxhktfz-Sodzu-Epkoy disease( Confirmed) 1 Active Depression(Confirmed) Active HEADACHE(Confirmed) 2 Active Muscular dystrophy(Confirmed) Active 1followed at [facility] 2had negative CT, sent to Aakash Soares for possible SSRI Vital Signs Most recent to oldest [Reference Range]: 1 Height 150.00 cm (06/17/11 3:43 PM) Social History Social History Type Response Smoking Status Never smoker; Tobacc o user in household: No entered on: 07/06/14 Sex
--- OUTSIDE RECORDS SUMMARY | 2024-01-02 20:49 | XMS_ITS | Continuity of Care Document ---
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 Refills 0, Maintenance, 08/06/19 19:28:00 EDT, Route to Pharmacy Electronically, [facility]/pharmacy #[id number], 150, cm, 08/06/19 16:15:00 EDT, Height, 52.2, kg, 08/06/19 16:15:00 EDT, Dry We... Start Date: 08/06/19 Status: Ordered Problem List Condition Confirmation Course Effective Dates Status H ealth Status Informant Academic underachievement Confirmed Active Sacroiliac joint dysfunction of both sides Confirmed Active Cervical radiculopathy Confirmed Active Erqujpo-Vyltm-Lmlww disease 1 Confirmed Active Depression Confirmed Active HEADACHE 2 Confirmed Active Lumbar facet joint pain Confirmed Active Muscular dystrophy Confirmed Active Myofascial pain Confirmed Active 1followed at [facility] 2had negative CT, sent to Aakash Soares for possible SSRI Social History Social History Type Response Smoking Status Never smoker; Tobacc o user in household: No entered on: 07/06/14 Sex Patient Care team information Care Team Personnel Name: Millie DOMINGUEZ, Caren Pagan Position: [facility] Physician - Primary Care Member Role: PCP Address: Address: [address] [place] [address] [place] [address]- Name: Neisha Patricio MD Position: [facility] ADVERTISING COORDINATOR MD Member Role: Lifetime ADVERTISING COORDINATOR Physician Address: Address: [address] [place] [address] [address]- Care Team Related Persons Name: ABIGAIL GARCIA Address: home [address] [place] [address] Name: LA RUBIN Address: home [address] [place] [address] Name: ABIGAIL GALLARDO Address: home [address] [place] [address] Name: EDILSON LINARES Address: home [address] [place] [address]
--- OUTSIDE RECORDS SUMMARY | 2024-01-02 20:49 | XMS_ITS | Continuity of Care Document ---
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 Name Role Phone Caren Pinto MD Primary Care Physician Encounter [facility] [place] Date(s): 02/26/23 - 02/26/[address] [address]- Discharge Disposition: A-D/C Walkout Attending Physician: Not on Staff, Attending MD Admitting Physician: Not on Staff, Admitting MD Referring Physician: Not on Staff, Referring MD Allergies, Adverse Reactions, Alerts Substance Reaction [...] DTP 25Admin Note: HIB Problem List Condition Confirmation Course Effective Dates Status H ealth Status Informant Academic underachievement Confirmed Active Sacroiliac joint dysfunction of both sides Confirmed Active Cervical radiculopathy Confirmed Active Lkyruqs-Gyath-Gdqfu disease 1 Confirmed Active Depression Confirmed Active HEADACHE 2 Confirmed Active Lumbar facet joint pain Confirmed Active Muscular dystrophy Confirmed Active Myofascial pain Confirmed Active 1followed at [facility] 2had negative CT, sent to Aakash Soares for possible SSRI Social History Social History Type Response Smoking Status Never smoker; Tobacc o user in household: No entered on: 07/06/14 Sex Patient Care team information Care Team Personnel Name: Caren Pinto MD Position: [facility] Physician - Primary Care Member Role: PCP Address: Address: [address] [place] [address] [place] [address]- Name: Neisha Patricio MD Position: [facility] REPORTER MD Member Role: Lifetime REPORTER Physician Address: Address: [address] [place] [address]- Care Team Related Persons Name: ABIGAIL GARCIA Address: home [address] [place] [address] Name: LA RUBIN Address: home [address] [place] [address] Name: ABIGAIL GALLARDO Address: home [address] [place] [address] Name: EDILSON LINARES Address: home [address] [place] [address]
--- OUTSIDE RECORDS SUMMARY | 2024-01-02 20:49 | XMS_ITS | Continuity of Care Document ---
Author Organization [facility] Address [address] [place] [address]- Care Team Providers Care Phone Manager Name Role Phone Millie DOMINGUEZ, Caren Pagan Primary Care Physician En[place] [facility] [place] Date(s): 04/04/19 - 07/21/[address] [address]- [facility] Attending Physician: Not on Staff, Attending MD [...] 24Admin Note: DTP 25Admin Note: HIB Medications Depo-Predate 0 Refills, Maintenance, 07/18/19 15:20:00 EDT Start Date: 07/18/19 Status: Ordered Fioricet oral capsule 1 capsule, By Mouth, Every 4 hours, PRN Headache, # 12 capsule, 0 Refills, Maintenance, 07/18/19 17:03:00 EDT, [facility]acy #[id number], 1 capsule By Mouth Every 4 hours,PRN:Headache, 150, cm, 07/18/19 16:45:00 EDT, Height, 47.7, kg, 07/18/19 16:39:00 EDT,... Start Date: 07/18/19 Status: Ordered ondansetron 4 mg oral tablet, disintegrating 1 tablet = 4 mg, By Mouth, Every 8 hours, PRN Nausea & Vomiting, # 10 tablet, 0 Refills, Maintenance, 07/18/19 17:03:00 EDT, Tablet, [facility]/pharmacy #[id number], 150, cm, 07/18/19 16:45:00 EDT, Height, 47.7, kg, 07/18/19 16:39:00 EDT, Dry Weight Start Date: 07/18/19 Status: Ordered Problem List Condition Effective Dates Status Health Status Inform ant Academic underachievement(Confirmed) Active Jskjgch-Tczta-Fzypk disease( Confirmed) 1 Active Depression(Confirmed) Active HEADACHE(Confirmed) 2 Active Muscular dystrophy(Confirmed) Active 1followed at [facility] 2had negative CT, sent to Aakash Soares for possible SSRI Social History Social History Type Response Smoking Status Never smoker; Tobacc o user in household: No entered on: 07/06/14 Sex
--- OUTSIDE RECORDS SUMMARY | 2024-01-02 20:49 | XMS_ITS | Continuity of Care Document ---
Author Organization [facility] Address [address] [place] [address]- Care Team Providers Care Insurance Follow Up Representative Name Role Phone Not on Staff, PCP Primary Care Physician Unavail able Encounter [facility] Date(s): 06/21/19 - 07/01/19 [facility] [address] [address]- [facility] Attending Physician: Armando Ortiz Admitting [...] 24Admin Note: DTP 25Admin Note: HIB Medications Zoloft 50 mg oral tablet 1 tablet = 50 mg, By Mouth, Daily, 0 Refills, Maintenance, 05/07/19 16:37:00 EST Start Date: 05/07/19 Status: Ordered Problem List Condition Effective Dates Status Health Status Inform ant Academic underachievement(Confirmed) Active Qtufink-Fplbj-Fftoe disease( Confirmed) 1 Active Depression(Confirmed) Active HEADACHE(Confirmed) 2 Active Muscular dystrophy(Confirmed) Active 1followed at [facility] 2had negative CT, sent to Aakash Soares for possible SSRI Vital Signs Most recent to oldest [Reference Range]: 1 Height 150.00 cm (06/17/11 3:43 PM) Social History Social History Type Response Smoking Status Never smoker; Tobacc o user in household: No entered on: 07/06/14 Sex
--- OUTSIDE RECORDS SUMMARY | 2024-01-02 20:49 | XMS_ITS | Continuity of Care Document ---
Author Organization [facility] ter Address [address] [place] [address]- Care Team Providers Care Assistant Produce Manager Name Role Phone Caren Pinto MD Primary Care Physician [phone] Encounter [facility] Date(s): 06/15/21 - 06/15/[address] [address]- Encounter Diagnosis Migraine(Final) - 06/15/21 Discharge Disposition: A-D/C Home Referring Physician: Not on Staff, Referring MD [...] 08/06/19 19:28:00 EDT, Route to Pharmacy Electronically, [facility]/pharmacy #[id number], 150, cm, 08/06/19 16:15:00 EDT, Height, 52.2, kg, 08/06/19 16:15:00 EDT, Dry We... Start Date: 08/06/19 Status: Ordered Depo-Provera = 400 mg, Intramuscular, 0 Refills, Maintenance, 08/06/19 16:17:00 EDT Start Date: 08/06/19 Status: Ordered Problem List Condition Effective Dates Status Health Status Inform ant Academic underachievement(Confirmed) Active Wxuxtkx-Vjnvg-Qitun disease( Confirmed) 1 Active Depression(Confirmed) Active HEADACHE(Confirmed) 2 Active Muscular dystrophy(Confirmed) [address] sent to Aakash Soares for possible SSRI Vital Signs Most recent to oldest [Reference Range]: 1 2 Height 150 cm (06/15/21 5:13 PM) 150 cm (06/15/21 2:58 PM) Weight 50 kg (06/15/21 5:13 PM) 50 kg (06/15/21 2:58 PM) Oxygen Saturation [94-100 %] 99 % (06/15/21 5:13 PM) 100 % (06/15/21 2:36 PM) Pulse Rate [55-90 bpm] 79 bpm (06/15/21 5:13 PM) 91 bpm *H* (06/15/21 2:36 PM) Body Mass Index [18.5-24.99] 22.22 (06/15/21 5:13 PM) Blood Pressure [90-138/55-84 mm Hg] 106/ 50mm Hg (06/15/21 5:13 PM) 112/60mm Hg (06/15/21 2:36 PM) Respiratory Rate [16-30 br/min] 20 br/mi n (06/15/21 5:13 PM) 18 br/min (06/15/21 2:36 PM) Temperature [96.8-100.4 DegF] 98.5 DegF (06/15/21 5:13 PM) 98.1 DegF (06/15/21 2:36 PM) Mode of Delivery (Oxygen) Room air (06/15/21 5:13 PM) Room air (06/15/21 2:36 PM) Blood pressure sites Arm, left (06/15/21 5:13 PM) Temperature Route Oral (06/15/21 5:13 PM) Oral (06/15/21 2:36 PM) Dry Weight 50 kg (06/15/21 5:13 PM) 50 kg (06/15/21 2:58 PM) Social History Social History Type Response Smoking Status Never smoker; Tobacc o user in household: No entered on: 07/06/14 Sex
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
--- OUTSIDE RECORDS SUMMARY | 2024-01-02 20:49 | XMS_ITS | Continuity of Care Document ---
Author Organization [facility] Address [address] [place] [address]- Care Team Providers Care Adult Neurologist Name Role Phone Millie DOMINGUEZ, Caren Pagan Primary Care Physician [place] [facility] [place] 09/12/22 [facility] [address] [place] [address]- Allergies, Adverse Reactions, Alerts Substance Reaction Severity [...] 08/06/19 19:28:00 EDT, Route to Pharmacy Electronically, [facility]/pharmacy #[id number], 150, cm, 08/06/19 16:15:00 EDT, Height, 52.2, kg, 08/06/19 16:15:00 EDT, Dry We... 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 Active Cervical radiculopathy Confirmed Active Easjggp-Hmvki-Ahpho disease 1 Confirmed Active Depression Confirmed Active HEADACHE 2 Confirmed Active Lumbar facet joint pain Confirmed Active Muscular dystrophy Confirmed Active Myofascial pain Confirmed Active 1followed at [facility] 2had negative CT, sent to Aakash Soares for possible SSRI Social History Social History Type Response Smoking Status Never smoker; Tobacc o user in household: No entered on: 07/06/14 Sex Patient Care team information Care Team Personnel Name: Millie DOMINGUEZ, Caren Pagan Position: [facility] Physician - Primary Care Member Role: PCP Address: Address: [address] [place] [address] [place] [address]- Name: Neisha Patricio MD Position: [facility] MID LEVEL DEVELOPER MD Member Role: Lifetime MID LEVEL DEVELOPER Physician Address: Address: [address] [place] [address]- Care Team Related Persons Name: ABIGAIL GARCIA Address: home [address] [place] [address] Name: LA RUBIN Address: home [address] [place] [address] Name: ABIGAIL GALLARDO Address: home [address] [place] [address] Name: EDILSON LINARES Address: home [address] [place] [address]
--- OUTSIDE RECORDS SUMMARY | 2024-01-02 20:49 | XMS_ITS | Continuity of Care Document ---
Author Organization [facility] Address [address] [place] [address]- Care Team Providers Care Employee Benefits Coordinator Name Role Phone Not on Staff, PCP Primary Care Physician Unavail able [facility]counter [facility] Date(s): 02/22/19 - 03/30/19 [facility] [address] [address]- [facility] Attending Physician: Not on Staff, Attending MD Referring Physician: Job MCCLENDON, AUTOMOTIVE ENGINEERING TECHNICIAN, Afia Pagan Allergies, Adverse Reactions, Alerts Substance Reaction Severity [...] Health Status Inform ant Academic underachievement(Confirmed) Active Ldozqwn-Bemiu-Dzrwz disease( Confirmed) 1 Active Depression(Confirmed) Active HEADACHE(Confirmed) 2 Active Muscular dystrophy(Confirmed) Active 1followed at [facility] 2had negative CT, sent to Aakash Soares for possible SSRI Social History Social History Type Response Smoking Status Never smoker; Tobacc o user in household: No entered on: 07/06/14 Sex
--- OUTSIDE RECORDS SUMMARY | 2024-01-02 20:49 | XMS_ITS | Continuity of Care Document ---
Author Organization [facility] Address [address] [place] [address]- Care Team Providers Care Draw Off Worker Name Role Phone Millie DOMINGUEZ, Caren Pagan Primary Care Physician [place] [facility] [place] 06/24/21 - 07/24/21 [facility] [address] [place] [address]- Attending Physician: Armando Ortiz Admitting Physician: Armando Ortiz Referring Physician: AdmtrArmando Allergies, Adverse Reactions, Alerts Substance Reaction Severity Status shellfish Active Phenergan Shaking Active Nahtalia severe nose bleeds Active Seafood anaphylaxis Active [...] 19:28:00 EDT, Route to Pharmacy Electronically, [facility]/pharmacy #[id number], 150, cm, 08/06/19 16:15:00 EDT, Height, 52.2, kg, 08/06/19 16:15:00 EDT, Dry We... Start Date: 08/06/19 Status: Ordered Depo-Provera = 400 mg, Intramuscular, 0 Refills, Maintenance, 08/06/19 16:17:00 EDT Start Date: 08/06/19 Status: Ordered Problem List Condition Effective Dates Status Health Status Inform [facility] Academic underachievement(Confirmed) Active Akdzqcg-Gyjtp-Vxceu disease( Confirmed) 1 Active Depression(Confirmed) Active HEADACHE(Confirmed) 2 Active Muscular dystrophy(Confirmed) Active 1followed at [facility] 2had negative CT, sent to Aakash Soares for possible SSRI Social History Social History Type Response Smoking Status Never smoker; Tobacc o user in household: No entered on: 07/06/14 Sex
--- OUTSIDE RECORDS SUMMARY | 2024-01-02 20:49 | XMS_ITS | Continuity of Care Document ---
Author Organization [facility] Address [address] [place] [address]- Care Team Providers Care Gas Scrubber Operator Name Role Phone Millie DOMINGUEZ, Caren Pagan Primary Care Physician [phone] Encounter [facility] Date(s): 02/21/20 - 03/22/[address] [address] Allergies, Adverse Reactions, Alerts Substance Reaction Severity [...] 19:28:00 EDT, Route to Pharmacy Electronically, [facility]/pharmacy #[id number], 150, cm, 08/06/19 16:15:00 EDT, Height, 52.2, kg, 08/06/19 16:15:00 EDT, Dry We... Start Date: 08/06/19 Status: Ordered Depo-Provera = 400 mg, Intramuscular, 0 Refills, Maintenance, 08/06/19 16:17:00 EDT Start Date: 08/06/19 Status: Ordered Problem List Condition Effective Dates Status Health Status Inform ant Academic underachievement(Confirmed) Active Emxwyla-Fjrwk-Gkmpr disease( Confirmed) 1 Active Depression(Confirmed) Active HEADACHE(Confirmed) 2 Active Muscular dystrophy(Confirmed) Active 1followed at [facility] 2had negative CT, sent to Aakash Soares for possible SSRI Social History Social History Type Response Smoking Status Never smoker; Tobacc o user in household: No entered on: 07/06/14 Sex
--- OUTSIDE RECORDS SUMMARY | 2024-01-02 20:49 | XMS_ITS | Continuity of Care Document ---
Author Organization [facility] Address [address] [place] [address]- Care Team Providers Care Oral Health Therapist Name Role Phone Millie DOMINGUEZ, Caren Pagan Primary Care Physician [place] [facility] [place] 11/19/22 - 12/19/22 [facility] [address] [place] [address] Attending Physician: Armando Ortiz Admitting Physician: Armando Ortiz Referring Physician: [id number] Allergies, Adverse Reactions, Alerts Substance Reaction Severity [...] sides Confirmed Active Cervical radiculopathy Confirmed Active Xgntqyk-Yqves-Crwss disease 1 Confirmed Active Depression Confirmed Active HEADACHE 2 Confirmed Active Lumbar facet joint pain Confirmed Active Muscular dystrophy Confirmed Active Myofascial pain Confirmed Active 1followed at [facility] 2had negative CT, sent to Aakash Soares for possible SSRI Social History Social History Type Response Smoking Status Never smoker; Tobacc o user in household: No entered on: 07/06/14 Sex Patient Care team information Care Team Personnel Name: Millie DOMINGUEZ, Caren Pagan Position: [facility] Physician - Primary Care Member Role: PCP Address: Address: [address] [place] [address]- Name: Neisha Patricio MD Position: [facility] FORESTRY FARM LABORER MD Member Role: Lifetime FORESTRY FARM LABORER Physician Address: Address: [address] [place] [address]- Care Team Related Persons Name: ABIGAIL GARCIA Address: home [address] [place] [address] Name: LA RUBIN Address: home [address] [place] [address] Name: ABIGAIL GALLARDO Address: home [address] [place] [address] Name: EDILSON LINARES Address: home [address] [place] [address]
--- OUTSIDE RECORDS SUMMARY | 2024-01-02 20:49 | XMS_ITS | Continuity of Care Document ---
Author Organization [facility] Address [address] [place] [address]- Care Team Providers Care Loan And Credit Manager Name Role Phone Millie DOMINGUEZ, Caren Pagan Primary Care Physician En[place] [facility] [place] Date(s): 08/04/22 - 09/03/22 [facility] [address] [place] [address] Attending Physician: Armando Ortiz Admitting Physician: Armando [...] 08/06/19 19:28:00 EDT, Route to Pharmacy Electronically, [facility]/pharmacy #1234, 150, cm, 08/06/19 16:15:00 EDT, Height, 52.2, kg, 08/06/19 16:15:00 EDT, Dry We... Start Date: 08/06/19 Status: Ordered Problem List Condition Confirmation Course Effective Dates Status H ealth Status Informant Academic underachievement Confirmed Active Sacroiliac joint dysfunction of both sides Confirmed Active Cervical radiculopathy Confirmed Active Ilosokk-Rilms-Jmsar disease 1 Confirmed Active Depression Confirmed Active HEADACHE 2 Confirmed Active Lumbar facet joint pain Confirmed Active Muscular dystrophy Confirmed Active Myofascial pain Confirmed Active 1followed at [facility] 2had negative CT, sent to Aakash Soares for possible SSRI Social History Social History Type Response Smoking Status Never smoker; Tobacc o user in household: No entered on: 07/06/14 Sex Patient Care team information Care Team Personnel Name: Caren Pinto MD Position: [facility] Physician - Primary Care Member Role: PCP Address: Address: [address] [place] [address]- Name: Neisha Patricio MD Position: [facility] ACUTE CARE PHYSICAL THERAPIST Member Role: Lifetime ACUTE CARE PHYSICAL THERAPIST Physician Address: Address: [address] [place] [address]- Care Team Related Persons Name: ABIGAIL GARCIA Address: home [address] [place] [address] Name: LA RUBIN Address: home [address] [place] [address] Name: ABIGAIL GALLARDO Address: home [address] [place] [address] Name: EDILSON LINARES Address: [address] [place] [address]
--- OUTSIDE RECORDS SUMMARY | 2024-01-02 20:49 | XMS_ITS | Continuity of Care Document ---
Author Organization [facility] Address [address] [place] [address]- Care Team Providers Care Employment Programs Analyst Name Role Phone Caren Pinto MD Primary Care Physician Encounter [facility] Date(s): 06/24/21 - 07/01/21 [facility] [address] [place] [address]- Attending Physician: Juni Grimes DO Referring Physician: Caren Pinto MD Allergies, Adverse Reactions, Alerts Substance Reaction [...] 08/06/19 19:28:00 EDT, Route to Pharmacy Electronically, [facility]/pharmacy #1234, 150, cm, 08/06/19 16:15:00 EDT, Height, 52.2, kg, 08/06/19 16:15:00 EDT, Dry We... Start Date: 08/06/19 Status: Ordered Depo-Provera = 400 mg, Intramuscular, 0 Refills, Maintenance, 08/06/19 16:17:00 EDT Start Date: 08/06/19 Status: Ordered naproxen 500 mg oral tablet 1 tablet = 500 mg, By Mouth, 2 times a day, for 10 days, # 20 tablet, 0 Refills, Acute 07/04/21 18:03:00 EDT, 06/24/21 18:03:00 EDT, Tablet, [facility]/pharmacy #[id number], Partial fill upon patient request if the prescription is for a schedule II opioid drug., 1... Start Date: 06/24/21 Stop Date: 07/04/21 Status: Ordered predniSONE 10 mg oral tablet See Instructions, 4 tab PO QD x 2 days, 3 tab PO QD x 2 days, 2 tab PO QD x 2 days,, # 18 tablet, 0Refills, Acute 07/05/21 13:19:00 EDT, 06/25/21 13:19:00 EDT, Tablet, [facility]/pharmacy #[id number], Partial fill upon patient request if the prescription is for... Start Date: 06/25/21 Stop Date: 07/05/21 Status: Ordered Problem List Condition Effective Dates Status Health Status Inform [facility] Academic underachievement(Confirmed) Active Qjfwnyw-Eccxk-Xgafh disease( Confirmed) 1 Active Depression(Confirmed) Active HEADACHE(Confirmed) 2 Active Muscular dystrophy(Confirmed) Active 1followed at [facility] 2had negative CT, sent to Aakash Soares for possible SSRI Vital Signs Most recent to oldest [Reference Range]: 1 Height 150 cm (06/24/21 5:51 PM) Oxygen Saturation [94-100 %] 100 % (06/24/21 5:51 PM) Pulse Rate [55-90 bpm] 85 bpm (06/24/21 5:51 PM) Blood Pressure [90-138/55-84 mm Hg] 128/ 91mm Hg (06/24/21 5:51 PM) Respiratory Rate [16-30 br/min] 20 br/mi n (06/24/21 5:51 PM) Temperature [96.8-100.4 DegF] 97.1 DegF (3/28/22 5:51 PM) Mode of Delivery (Oxygen) Room air (06/24/21 5:51 PM) Social History Social History Type Response Smoking Status Never smoker; Tobacc o user in household: No entered on: 07/06/14 Sex
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
[2024-01-02] MEDS: iohexoL 350 MG/ML 100 ML INFUS..BTL 85 ML IV (21:29)
[2024-01-02] MEDS: Ibuprofen 600 MG TABLET PO (21:52)
[2024-01-03] MEDS: Ondansetron ODT 4 MG TAB.RAPDIS TRANSLINGU (00:14)
[2024-01-03 00:22] VITALS: BP 105/66; PULSE 77; RESP 18; TEMP 36.8; O2SAT 97
== END 2024-01-03 00:17 | disposition home or self-care (01) ==
PROVIDERS: Emergency Provider Emergency Medicine
DX: S70.01XA Contusion of right hip, initial encounter (principal); V43.52XA Car driver injured in collision with other type car in traffic accident, initial encounter; R51.9 Headache, unspecified; M54.2 Cervicalgia; Y93.89 Activity, other specified; Y92.414 Local residential or business street as the place of occurrence of the external cause; Y99.9 Unspecified external cause status
CPT/HCPCS: 70450; 72125; 73502; 99284; Q9967

== ENCOUNTER 2024-06-03 18:25 | Emergency (ER) | payer OTHER, SELFPAY ==
[2024-06-03 19:07] VITALS: BP 104/69; PULSE 79; RESP 18; TEMP 36.9; O2SAT 100; BMI 28.3
--- NOTE | 2024-06-03 19:09 | ED_ITS ---
HPI - General Adult General Chief complaint: Abdominal Pain Stated complaint: fever 4 days / vomitting / Time Seen by Provider: 06/03/24 21:32 Source: patient Limitations: no limitations History of Present Illness ED Provider: Disha Eugene PA-C HPI narrative: 38-year-old female presents with nausea vomiting x4 days. Associated low-grade fevers at home. Denies abdominal pain, diarrhea, cough and cold symptoms or sick contacts with similar symptoms. Last menstrual period in April. Related Data Previous Rx's ?Medication ?Instructions ?Recorded sennosides 8.6 mg capsule (senna) 8.6 mg PO BEDTIME PRN constipation 05/03/21 #30 caps albuterol sulfate 90 mcg/actuation 2 inh inhalation Q4-6H PRN 04/01/23 breath activated powder inhaler shortness of breath or wheezing #1 ea loratadine 10 mg tablet 10 mg PO DAILY #30 tabs 04/01/23 prednisone 20 mg tablet 40 mg (2 x 20 mg) PO DAILY 5 days 04/01/23 #10 tabs ondansetron HCl 4 mg tablet 4 mg PO Q8H PRN nausea and 06/04/24 vomiting #10 tabs vit no.95-ferrous 1 tab PO DAILY #30 tabs 06/04/24 fumarate 28 mg-folic acid 800 mcg tablet () Allergies Allergy/AdvReac Type Severity Reaction Status Date / Time fexofenadine [From Nathalia] Allergy Dry Mucus Verified 06/03/24 19:08 Membranes promethazine [From Phenergan] Allergy Shakiness Verified 06/03/24 19:08 shellfish derived Allergy Anaphylaxis Verified 06/03/24 19:08 Review of Systems 2 Review of Systems: Yes all other systems are reviewed and are negative Constitutional: Constitutional: Reports fatigue, Reports fever(s) and Reports malaise Cardiovascular: Cardiovascular: Denies chest pain Respiratory: Respiratory: Denies cough Gastrointestinal: Gastrointestinal: Denies abdominal pain, Denies diarrhea, Reports nausea and Reports vomiting Genitourinary: Genitourinary: Denies dysuria Endocrine: Endocrine: Reports fatigue PMF Past Medical History Attestation statement: The following information was validated with the patient. Medical History Vaginal delivery Miscarriage Muscular dystrophy Surgical History Hx of appendectomy Social History Social History Household Members Other:: single, 14 y/o Alcohol intake: never Patient Tobacco Use Status: Never used Tobacco Substance Use Type: Marijuana Advance Directives: No Advance Directives Information Provided: No Do you have a plan to hurt others: No Plan Physical Exam ED Vital Signs: Vital Signs - 24 hr 06/03/24 19:07 06/03/24 22:44 Temperature 98.5 F 98.2 F Pulse Rate 79 77 Respiratory Rate 18 18 Blood Pressure 104/69 118/66 Pulse Oximetry 100 99 Oxygen Delivery Method Room Air Room Air BMI result Body Mass Index 28.3 Const Other: Alert Orientation/consciousness: patient oriented x3 Resp Effort & Inspection: normal respiratory effort Cardio Other: Normal peripheral perfusion Skin Other: Warm dry no rash Neuro General: patient oriented x3, gait normal, no focal motor deficits and CN's II- XI intact bilaterally Psych Other: Cooperative Course Course Course Narrative: RME performed by Pascale Trimble PA-C. Patient is a 38 year old assigned female at presenting to the emergency department with abdominal pain, nausea, and vomiting. Patient states that over the last few years she has had nausea, vomiting, and abdominal pain however over the last few days it has been worse. Detailed physical exam and review of systems are deferred to the speech and language clinician. Labs and swabs ordered. Patient placed back in the waiting room pending room availability and results. Medications Administered Discontinued Medications Generic Name Dose Route Start Last Admin Trade Name Palomoq PRN Reason Stop Dose Admin Sodium Chloride 1,000 mls @ 999 mls/hr 06/03/24 22:30 06/04/24 00:33 Ns IV 06/03/24 23:30 Infused .Q1H1M GOKUL Infusion Acetaminophen 1,000 mg in 100 mls @ 400 mls/hr 06/03/24 22:19 06/04/24 00:32 Ofirmev IV 06/03/24 22:33 Infused ONCE ONE Infusion Ondansetron HCl 4 mg 06/03/24 22:19 06/03/24 22:43 Ondansetron Hcl 4 Mg/2 Ml Vial IVPUSH 06/03/24 22:20 4 mg ONCE ONE Administration Medical Decision Making Medical Decision Making [facility] Narrative: 38-year-old female presents with nausea vomiting x4 days. Associated low-grade fevers at home. Denies abdominal pain, diarrhea, cough and cold symptoms or sick contacts with similar symptoms. Last menstrual period in April. No chronic issues History: Per patient I have considered the following differential diagnoses: Symptoms of early , viral syndrome, acute intra-abdominal pathology Plan: Labs were obtained from triage, the patient was she was not aware. Her symptoms are likely secondary to her . She has no complaint of abdominal pain, imaging not warranted. We will add on a viral panel, her urine is being collected, to note she is not having any dysuria. We will give Tylenol Zofran and fluid I have independently reviewed the following tests: Labs: Slight leukocytosis, not anemic, no electrolyte abnormality, beta HCG 62609, viral negative, urine not infected Lab Data 06/03/24 19:17 06/03/24 19:17 Labs: Lab Results 06/03/24 06/03/24 Range/Units 19:17 22:33 WBC 11.2 H (4.8-10.8) X10*3/uL RBC 3.75 L (4.20-5.50) X10*6/uL Hgb 12.0 (12.0-16.0) g/dl Hct 33.9 L (37.0-47.0) % MCV 90.4 (80.0-98.0) fL MCH 32.0 (27.0-33.0) pg MCHC 35.4 H (31.0-35.0) g/dl RDW 13.1 (11.0-16.0) % Plt Count 375 (160-400) X10*3/uL MPV 9.8 (9.4-12.3) fL Immature Gran % (Auto) 0.4 (0.0-0.4) % Neut % (Auto) 74.7 H (45-73) % Lymph % (Auto) 15.2 L (20-40) % [place] % (Auto) 9.1 (2-11) % Eos % (Auto) 0.4 (0-4) % Baso % (Auto) 0.2 (0-2) % Lymph # (Auto) 1.7 (1.2-4.9) X10*3/uL [place] # (Auto) 1.0 (0.1-1.2) X10*3/uL Eos # (Auto) 0.0 (0.0-0.4) X10*3/uL Baso # (Auto) 0.0 (0.0-0.2) X10*3/uL Abs Immat Gran (auto) 0.05 H (0.00-0.03) X10*3/uL Absolute Neuts (auto) 8.4 H (2.0-8.3) x10*3/uL Absolute Nucleated RBC 0.000 (0.0-0.012) X10*3/uL Nucleated RBC % (auto) 0.0 (0.0-0.2) /100WBC Sodium 138 (135-145) mmol/L Potassium 3.4 (3.3-5.1) mmol/L Chloride 109 H (96-108) mmol/L Carbon Dioxide 20 L (22-29) mmol/L Anion Gap 12 (12-20) BUN 9 (9-16) mg/dL Creatinine 0.63 (0.5-1.4) mg/dL Estim Creat Clear Calc 99.0 Estimated GFR > 60 Random Glucose 95 (60-115) mg/dL Calcium 9.3 (8.4-10.2) mg/dL Magnesium 2.0 (1.6-2.6) mg/dL Total Bilirubin 0.4 (0.0-1.0) mg/dL AST 17 (5-31) U/L ALT 14 (0-31) U/L Alkaline Phosphatase 58 (39-117) U/L Total Protein 8.0 (6.5-8.0) g/dL Albumin 4.3 (3.5-5.0) g/dL Beta HCG, Quant 44808 mIU/mL Urine Color Dark Yellow Urine Appearance Cloudy Urine pH 7.5 (5.0-9.0) Ur Specific [place] 1.025 (1.005-1.025) Urine Protein 30 (1+) H (Neg-Trace) mg/dL Urine Glucose (UA) Negative (Negative) mg/dL Urine Ketones 40 (Negative) mg/dL Urine Blood Negative (Negative) Urine Nitrite Negative (Negative) Ur Leukocyte Esterase Negative (Negative) Urine RBC 0-2 (0-2) /HPF Urine WBC 0-5 (0-5) /HPF Ur Squamous Epith Cells 11-20 (0-2) /HPF Urine Bacteria 2+ (None Seen) Hyaline Casts 3-5 (0-2) /LPF Influenza Type A (PCR) NEGATIVE (Negative) Influenza Type B (PCR) NEGATIVE (Negative) RSV RNA Qual (PCR) NEGATIVE (Negative) SARS-CoV-2 RNA (RT-PCR) NEGATIVE (Negative) Discharge Plan Discharge Clinical Impression: and not yet delivered in first trimester Patient Disposition: Home, Self-Care Instructions: First Trimester (ED) Additional Instructions: You were found to be . You need to follow up with your clinical quality assurance associate to initiate care, if you choose to maintain this . I am prescribing vitamins, use them as directed. Uses Zofran as needed for nausea. Your symptoms are likely secondary to early . The remainder of your screening labs including a viral panel and your urinalysis were normal. Prescriptions: New ondansetron HCl 4 mg tablet 4 mg PO Q8H PRN (Reason: nausea and vomiting) Qty: 10 0RF PNV cmb#95-ferrous fumarate-FA [] 28 mg iron- 800 mcg tablet 1 tab PO DAILY Qty: 30 0RF No Action senna 8.6 mg capsule 8.6 mg PO BEDTIME PRN (Reason: constipation) Qty: 30 0RF albuterol sulfate 90 mcg/actuation aerosol powdr breath activated 2 inh inhalation Q4-6H PRN (Reason: shortness of breath or wheezing) Qty: 1 0RF prednisone 20 mg tablet 40 mg PO DAILY 5 Days Qty: 10 0RF loratadine 10 mg tablet 10 mg PO DAILY Qty: 30 0RF Print Language: Macanese
[2024-06-03 19:21] LABS: MANUAL DIFF FLAG NO
[2024-06-03 19:27] LABS: Basophils Percent Auto 0.2 % (0-2); Eosinophils Percent Auto 0.4 % (0-4); Hematocrit 33.9 % (37.0-47.0); Imm Gran Abs Auto 0.05 X10*3/uL (0.00-0.03); Imm Gran Pct Auto 0.4 % (0.0-0.4); Lymphocytes Absolute Auto 1.7 X10*3/uL (1.2-4.9); Lymphocytes Percent Auto 15.2 % (20-40); Mean Corpuscular HGB Conc 35.4 g/dl (31.0-35.0); Mean Corpuscular Volume 90.4 fL (80.0-98.0); Mean Platelet Volume 9.8 fL (9.4-12.3); Monocytes Percent Auto 9.1 % (2-11); Neutrophils Absolute Auto 8.4 x10*3/uL (2.0-8.3); Neutrophils Percent Auto 74.7 % (45-73); Platelet Count 375 X10*3/uL (160-400); Red Blood Count 3.75 X10*6/uL (4.20-5.50); Red Cell Distribution Width 13.1 % (11.0-16.0); White Blood Count 11.2 X10*3/uL (4.8-10.8)
[2024-06-03 19:46] LABS: Alanine Aminotransferase 14 U/L (0-31); Albumin Level 4.3 g/dL (3.5-5.0); Alkaline Phosphatase 58 U/L (39-117); Anion Gap 12 (12-20); Aspartate Amino Transferase 17 U/L (5-31); Bilirubin Total 0.4 mg/dL (0.0-1.0); Blood Urea Nitrogen 9 mg/dL (9-16); Calcium 9.3 mg/dL (8.4-10.2); Carbon Dioxide 20 mmol/L (22-29); Chloride 109 mmol/L (96-108); Estimated Glomerular Filt Rate > 60; Glucose Random 95 mg/dL (60-115); Potassium 3.4 mmol/L (3.3-5.1); Sodium 138 mmol/L (135-145)
[2024-06-03 22:41] LABS: Appearance Urine Cloudy; Color Urine Dark Yellow; Glucose Urine UA Negative (Negative); Leukocyte Esterase Urine Negative (Negative); Nitrite Urine Negative (Negative); PH 7.5 (5.0-9.0); Specific Gravity - Urine 1.025 (1.005-1.025); UMIC TRIGGER UACC YES; Urine Blood Negative (Negative); Urine Ketones 40 mg/dL (Negative); Urine Protein 30 (1+) mg/dL (Neg-Trace)
[2024-06-03] MEDS: ondansetron HCL 4 MG/2 ML VIAL IVPUSH (22:43)
[2024-06-03] MEDS: Acetaminophen 1,000 MG/100 ML PIGGYBACK 400 MG IV (22:43)
[2024-06-03 22:44] VITALS: BP 118/66; PULSE 77; RESP 18; TEMP 36.8; O2SAT 99
[2024-06-03] MEDS: 0.9 % Sodium Chloride 1,000 ML 999 ML IV (22:45)
[2024-06-03 22:54] LABS: Bacteria Urine 2+ (None Seen); RBC Urine 0-2 /HPF (0-2); WBC Urine 0-5 /HPF (0-5)
[2024-06-03 23:17] LABS: Influenza A PCR NEGATIVE (Negative); Influenza B PCR NEGATIVE (Negative); Resp Syncy Virus RNA Qual PCR NEGATIVE (Negative); SARS COV2 PCR INHOUSE NEGATIVE (Negative)
[2024-06-04 01:15] VITALS: BP 100/57; PULSE 65; RESP 16; TEMP 36.8; O2SAT 98
--- NOTE | 2024-06-04 01:24 | PC.NURSE ---
this rn assumed care of pt @ 2300 iv removed at time of discharge pt verbalized understanding of discharge plan pt ambulatory at time of discharge
[2024-06-04 01:25] VITALS: BP 100/57; PULSE 65; RESP 16; TEMP 36.8; O2SAT 98
== END 2024-06-04 01:29 | disposition home or self-care (01) ==
PROVIDERS: Physician Assistant Medical; Emergency Provider Internal Medicine
DX: O21.9 Vomiting of pregnancy, unspecified (principal); Z3A.00 Weeks of gestation of pregnancy not specified
CPT/HCPCS: 0241U; 36415; 80053; 81001; 83735; 84702; 85025; 96365; 96366; 96375; 99284; J0131; J2405

== ENCOUNTER 2024-12-12 15:48 | Emergency (ER) | payer OTHER, SELFPAY ==
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
[2024-12-12 15:53] VITALS: BP 118/65; PULSE 99; RESP 20; TEMP 36.9; O2SAT 98; BMI 24.2
--- NOTE | 2024-12-12 15:55 | ECG_ITS ---
Test Reason : CHEST PAIN Blood Pressure : */* mmHG Vent. Rate : 88 BPM Atrial Rate : 88 BPM P-R Int : 126 ms QRS Dur : 82 ms QT Int : 372 ms P-R-T Axes : 63 60 24 degrees QTcB Int : 450 ms Normal sinus rhythm Normal ECG When compared with ECG of 30-Jun-2020 19:54, Vent. rate has increased by 32 bpm Referred By: Winifred Szymanski Electronically Signed By: CHRISTINA SIMPSON
--- OUTSIDE RECORDS SUMMARY | 2024-12-12 21:50 | XMS_ITS | Clinical Summary ---
Author Organization [facility] Address [address] [place] [address] Care Team Providers Care Raw Shellfish Preparer Name Role Phone Lucy Caraballo MD Primary Care Provider [phone] Allergies Active Allergy Reactions Criticality Noted Date Comments Fexofenadine 03/14/2022 Shellfish 03/14/2022 Medications Medication Sig Dispensed Refills Start Date End Date Status cyclobenzaprine (FLEXERIL) 10 MG tablet Take 1 tablet (10 mg total) by mouth. 0 02/27/2022 Active predniSONE (DELTASONE) tablet 10 mg TAKE 1 TABLET BY MOUTH DAILY FOR 5 DAYS 0 02/27/2022 Active medroxyPROGESTERone acetate 150 MG/ML injection Inject 1 mL (150 mg total) into the muscle every 3 (three) months. 0 05/10/2019 Active amitriptyline (ELAVIL) tablet 25 mg Start with 25mg at night , increase 50mg in a week then add 25mg in morning /50mg at night , for another week to increased 50 mg twice a day 120 tablet 2 03/14/2022 Active Social History Tobacco Use Types Packs/Day Years Used Date Smoking Tobacco: Never Assessed Sex and Gender Information Value Date Recorded Sex Assigned at Female 03/03/2022 1:40 PM EST Gender Identity Not on file Sexual Orientation Not on file Job Start Date Occupation Industry Not on file Not on file Not on file Last Filed Vital Signs Vital Sign Reading Time Taken Comments Blood Pressure 114/76 03/14/2022 10:32 AM EST Pulse 98 03/14/2022 10:32 AM EST Temperature 36.2 C (97.1 F) 03/14/2022 10:32 AM EST Respiratory Rate - - Oxygen Saturation 99% 03/14/2022 10: 32 AM EST Inhaled Oxygen Concentration - - Weight 52.1 kg (114 lb 12.8 oz) 12/16/2 022 10:32 AM EST Height 149.9 cm (4' 11 ) 03/14/2022 10: 32 AM EST Body Mass Index 23.19 03/14/2022 10:32 AM EST Plan of Treatment Health Maintenance Due Date Last Done Comments Hepatitis C Screening 1986 COVID-19 Vaccine (#1) 06/18/1987 Depression Screening 1998 Preventative Health Evaluation 2004 Cervical Cancer Screening (Pap Smear) 12/19/2007 Influenza Vaccine (#1) 2024 02/02/2012, 2011 DTap / Tdap / Td (7 - Td or Tdap) 06/22/2029 06/23/2019, 10/12/2001, 07/03/1994, Additional history exists Hepatitis B Vaccines Completed 02/26/1993, 04/28/1992, 10/27/1991 Pneumococcal Vaccine Aged Out No long er eligible based on patient's age to complete this topic RSV Ped < 20 months Aged Out No longe r eligible based on patient's age to complete this topic Care Teams Raw Shellfish Preparer Relationship Specialty Start Date End Date Lucy Caraballo MD PCP - General Internal Medicine 03/07/22
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
--- OUTSIDE RECORDS SUMMARY | 2024-12-12 21:50 | XMS_ITS ---
Author Name [facility] Organization Unknown Care Team Organization Name Specialty Phone Email Start Date End Da te [facility] Geni Stewart DO Primary Care 08/04/202210/28 [facility] Lucy Caraballo Primary Care 02/04/2022
--- OUTSIDE RECORDS SUMMARY | 2024-12-12 21:50 | XMS_ITS | Clinical Summary ---
Author Organization [facility] Address [address] [place] [id number] Phone Care Team Providers Care Stitch Burnisher Name Role Phone Brad Ojeda MD Primary Care Provider Allergies Active Allergy Reactions Criticality Noted Date Comments Diazepam Itching 03/12/2016 Fexofenadine 03/12/2016 Bloody nose Phenergan Dm 03/12/2016 Uncontrollable shaking Shellfish Containing Products Swelling 03/12/2016 Medications medroxyPROGESTERon e (DEPO-PROVERA) 150 mg/mL Syrg IM injection syringe Inject 150 mg into the muscle every 3 (three) months. 05/10/19 20 Active rizatriptan (MAXALT-[employer] HYDRAULIC) 10 MG disintegrating tabletIndications: CMT (Yvtkbli-Sivyp-Vpc th disease),Intractab le migraine with aura without status migrainosus Take 1 tablet (10 mg total) by mouth as needed for migraine. May repeat in 2 hours if needed 18 tablet 5 11/14/19 20 Active Additional Information Patient not taking.Reported on 04/17/2020 ketoconazole 2 % creamIndications:O nychomycosis,Tinea pedis of both feet Apply topically daily. Apply for 30 days 15 g 2 04/17/19 21 Active Additional Information Patient not taking.Reported on 07/09/2021 Active Problems Problem Noted Date Diagnosed Date Onychomycosis 04/17/2020 Tinea pedis of both feet 04/17/2020 Social History Tobacco Use Types Packs/Day Years Used Date Smoking Tobacco: Never Smokeless Tobacco: Never Alcohol Use Standard Drinks/Week Comments Yes 0 (1 standard drink = 0.6 oz pur e alcohol) rare Education Answer Date Recorded Are you interested in more education? Not on luis e 07/25/2022 Are you concerned about learning? Not on file 07/25/2022 No 07/25/2022 No 07/25/2022 Digital Access Answer Date Recorded No 08/26/2022 No 08/26/2022 Reliable internet access at home? Not on file 08/26/2022 Device with a working camera? Not on file Comments Unknown Sex and Gender Information Value Date Recorded Sex Assigned at Female 08/29/2019 1:13 PM EDT Legal Sex Female 4:13 PM EST Gender Identity Female 08/29/2019 1:13 PM EDT Sexual Orientation Straight 08/29/2019 1: 13 PM EDT Last Filed Vital Signs Vital Sign Reading Time Taken Comments Blood Pressure 90/60 06/07/2019 1:32 PM EDT Pulse 93 06/07/2019 1:32 PM EDT Temperature - - Respiratory Rate - - Oxygen Saturation 98% 06/07/2019 1:32 PM EDT Inhaled Oxygen Concentration - - Weight 54.4 kg (120 lb) 07/09/2021 9:09 AM EDT Height 149.9 cm (4' 11 ) 07/09/2021 9:09 AM EDT Body Mass Index 24.24 07/09/2021 9:09 AM EDT Plan of Treatment Health Maintenance Due Date Last Done Comments DEPRESSION SCREENING 1998 HEPATITIS C SCREENING 2004 HIV ONE-TIME SCREENING (18-65 YEARS) 2004 PAP SMEAR 12/19/2007 INFLUENZA VACCINE (#1) 2024 2, 05/27/2011, 12/22/2008, Additional history exists COVID-19 VACCINE ( season) 2024 Adult Td,Tdap Booster 06/22/2029 06/23/2019 , 05/01/2009, 10/12/2001, Additional history exists HIB VACCINES Completed 08/14/1988 MENINGOCOCCAL VACCINES (ACWY) Aged Out 02/17/2007 No longer eligible based on patient's age to complete this topic SMOKING STATUS SCREENING (Once After 26 Yrs) Completed 07/09/2021 HEPATITIS A VACCINES Aged Out No long er eligible based on patient's age to complete this topic MENINGOCOCCAL VACCINES (B) Aged Out N o longer eligible based on patient's age to complete this topic PNEUMOCOCCAL VACCINES (0-49 years) Aged Out No longer eligible based on patient's age to complete this topic Medical Devices Not on file Insurance [employer]CO [facility] ALLANCE ACO [facility] RetrieveY ALLANCE ACO [facility] RetrieveY ALLANCE [facility]CO [facility] ALLANCE ACO [facility] ALLANCE ACO [facility] ALLANCE ACO Care Teams Stitch Burnisher Relationship Specialty Start Date End Date Brad Ojeda MD PCP - General Internal Medicine 08/29/19 Additional Source Comments The information contained in this document represents components of the legal health record. It is not the complete legal health record.[facility]
== END 2024-12-12 19:31 | disposition left against medical advice (07) ==
PROVIDERS: Emergency Provider Emergency Medicine
DX: R07.81 Pleurodynia (principal); Z87.828 Personal history of other (healed) physical injury and trauma; Z53.21 Procedure and treatment not carried out due to patient leaving prior to being seen by health care provider
CPT/HCPCS: 71046; 93005; 99283

== ENCOUNTER → 2024-12-12 15:55 | Outpatient (BNV) | payer OTHER, SELFPAY | PROVIDERS: Emergency Provider Emergency Medicine; Visit Provider Internal Medicine | DX: R07.9 Chest pain, unspecified (principal) | CPT/HCPCS: 93010 ==

== ENCOUNTER → 2024-12-12 15:55 | Outpatient (BNV) | payer OTHER, SELFPAY | PROVIDERS: Visit Provider Radiology Diagnostic Radiology | DX: R07.89 Other chest pain (principal) | CPT/HCPCS: 71046 ==